=== PATIENT | female | born 2000 | race Hispanic/Latino ===

== ENCOUNTER 2021-09-19 18:51 | Observation (INO) | payer OTHER, SELFPAY ==
--- NOTE | 2021-09-19 18:49 | PC.NURSE ---
SPOKE WITH FRANDY IN OB. REPORT GIVEN. PT TO OB FOR EVALUATION BY WHEELCHAIR
[2021-09-19 19:16] VITALS: BP 120/69; PULSE 107
[2021-09-19 19:19] VITALS: BMI 31.1
[2021-09-19 19:20] VITALS: TEMP 36.7
[2021-09-19 19:31] VITALS: BP 114/57; PULSE 116
[2021-09-19 19:36] LABS: Add Urine Microscopic? YES; Appearance Urine Clear (Clear); Bilirubin Urine Negative (Negative); Blood Urine Negative (Negative); Color Urine Yellow (Yellow); Glucose Urine UA Negative (Negative); Ketones Urine 1+ mg/dL (Negative); Leukocyte Esterase Ur 1+ LEU/UL (NEGATIVE); Nitrate Urine Negative (Negative); Protein Urine Negative (Negative); RBC Urine 0-2 /hpf (0-2); Specific Grav Ur 1.011 (1.001-1.035); Squamous Epithelial Cell Urine Moderate /hpf (Few); Urobilinogen Urine Negative mg/dL (<2.0); WBC Urine 0-3 /hpf (0-3)
[2021-09-19 19:46] VITALS: BP 113/67; PULSE 102
[2021-09-19 20:01] VITALS: BP 105/61; PULSE 105
[2021-09-19 20:16] VITALS: BP 113/47; PULSE 103
[2021-09-19] MEDS: ONDANSETRON INJ 4 MG/2 ML VIAL IV PUSH (20:37)
[2021-09-19] MEDS: LACTATED RINGERS 1,000 ML 999 ML IV CONT (20:37)
--- NOTE | 2021-10-05 09:04 | P.PNOB_ITS ---
OB - Triage/Final Diagnosis Visit Information Comments/Additional reasons for admission: I have assessed the risk for this patient, Ginny Schneider, and determined that she would benefit from observation care. Evaluation Laboratory results: Laboratory Tests 09/19/21 19:13 Urine Color Yellow Urine Appearance Clear Urine pH 7.0 Ur Specific [place] 1.011 Urine Protein Negative Urine Glucose (UA) Negative Urine Ketones 1+ H Ur Blood (Man) Negative Urine Nitrate Negative Urine Bilirubin Negative Urine Urobilinogen Negative Ur Leukocyte Esterase 1+ H Urine RBC 0-2 Urine WBC 0-3 Ur Squamous Epith Cells Moderate H Final Diagnosis (1) Nausea & vomiting: Code(s): R11.2 - Nausea with vomiting, unspecified Status: Acute
== END 2021-09-19 22:05 | disposition home or self-care (01) ==
PROVIDERS: Advanced Practice Midwife; Admitting Provider Obstetrics & Gynecology; PCP Family Medicine; Visit Provider Obstetrics & Gynecology
DX: O21.2 Late vomiting of pregnancy (principal); Z3A.27 27 weeks gestation of pregnancy
CPT/HCPCS: 81001; 87086; 96374; G0378; G0379; J2405; J7120

== ENCOUNTER 2021-10-01 17:13 | Observation (INO) | payer OTHER, SELFPAY ==
[2021-10-01] VITALS (14 sets, daily range): BP systolic 75–114; BP diastolic 44–72; PULSE 77–109; O2SAT 95–99
[2021-10-01 18:01] LABS: Basophils Percent Auto 0.3 % (0.2-1.2); Eosinophils Absolute Auto 0.1 K/mm3 (0-0.3); Eosinophils Percent Auto 0.8 % (0-4.4); Hematocrit 33.4 % (37.0-47.0); Hemoglobin 11.1 g/dL (12.0-15.0); Immature Granulocyte Absolute 0.18 K/mm3 (0.00-0.031); Immature Granulocyte Percent A 1.6 % (0-0.5); Lymphocytes Absolute Auto 1.56 K/mm3 (0.9-3.2); Lymphocytes Percent Auto 13.4 % (18.3-44.2); Mean Corpuscular HGB Conc 33.2 g/dl (32-36); Mean Corpuscular Hemoglobin 30.1 pg (26-34); Mean Corpuscular Volume 90.5 fl (80-100); Mean Platelet Volume 10.4 fl (7.4-10.4); Monocytes Absolute Auto 0.6 K/mm3 (0.1-0.6); Monocytes Percent Auto 5.3 % (2.6-8.5); Neutrophils Absolute Auto 9.1 K/mm3 (1.3-6.7); Neutrophils Percent Auto 78.6 % (45.5-73.1); Platelet Count Result 257 k/mm3 (150-375); Red Blood Count 3.69 M/mm3 (4.2-5.4); Red Cell Distribution Width 12.7 % (11.5-14.5); White Blood Count 11.6 K/mm3 (4.5-10.0)
[2021-10-01 18:11] LABS: Alanine Aminotransferase 28 U/L (4-35); Albumin Level 3.7 g/dL (3.5-5.1); Alkaline Phosphatase 86 U/L (38-126); Anion Gap 7 mmol/L (8-16); Aspartate Amino Transferase 29 U/L (14-36); Bilirubin,Total < 0.1 mg/dL (0.2-1.3); Blood Urea Nitrogen 6 mg/dL (7-17); Calcium 8.8 mg/dL (8.4-10.2); Carbon Dioxide 20 mmol/L (22-30); Chloride 106 mmol/L (98-107); Estimated Glomerular Filt Rate > 60; Glucose 87 mg/dL (65-110); Potassium 3.9 mmol/L (3.4-5.0); Sodium 133 mmol/L (137-145)
[2021-10-01 18:23] LABS: Uric Acid 3.6 mg/dL (2.5-7.5)
[2021-10-01 18:38] LABS: Add Urine Microscopic? YES; Appearance Urine Clear (Clear); Bacteria Urine Trace /hpf; Bilirubin Urine Negative (Negative); Color Urine Yellow (Yellow); Glucose Urine UA Negative (Negative); Ketones Urine Negative (Negative); Leukocyte Esterase Ur 1+ LEU/UL (Negative); Nitrate Urine Negative (Negative); Protein Urine Negative (Negative); RBC Urine 0-2 /hpf (0-2); Squamous Epithelial Cell Urine Moderate /hpf (Few); Urobilinogen Urine Negative mg/dL (<2.0)
[2021-10-01 18:39] LABS: Blood Urine Negative (Negative)
[2021-10-01] MEDS: CYCLOBENZAPRINE HCL 10 MG TABLET PO (19:11)
--- NOTE | 2021-10-26 22:21 | PM.OBTRLD ---
OB - Triage/Final Diagnosis Visit Information Comments/Additional reasons for admission: I have assessed the risk for this patient, Ginny Schneider, and determined that she would benefit from observation care. Evaluation Laboratory results: Laboratory Tests 10/01/21 10/01/21 10/01/21 17:52 17:52 17:52 WBC 11.6 H RBC 3.69 L Hgb 11.1 L Hct 33.4 L MCV 90.5 MCH 30.1 MCHC 33.2 RDW 12.7 Plt Count 257 MPV 10.4 Immature Gran % (Auto) 1.6 H Neut % (Auto) 78.6 H Lymph % (Auto) 13.4 L [place] % (Auto) 5.3 Eos % (Auto) 0.8 Baso % (Auto) 0.3 Lymph # (Auto) 1.56 [place] # (Auto) 0.6 Eos # (Auto) 0.1 Baso # (Auto) 0.0 Abs Immat Gran (auto) 0.18 H Absolute Neuts (auto) 9.1 H Absolute Nucleated RBC 0.0 Nucleated RBC % 0.0 Sodium 133 L Potassium 3.9 Chloride 106 Carbon Dioxide 20 L Anion Gap 7 L BUN 6 L Creatinine 0.40 L Estim Creat Clear Calc Not Reportable Estimated GFR > 60 Glucose 87 Uric Acid Calcium 8.8 Total Bilirubin < 0.1 L AST 29 ALT 28 Alkaline Phosphatase 86 Total Protein 7.0 Albumin 3.7 Urine Color Yellow Urine Appearance Clear Urine pH 6.0 Ur Specific [place] 1.010 Urine Protein Negative Urine Glucose (UA) Negative Urine Ketones Negative Ur Blood (Man) Negative Urine Nitrate Negative Urine Bilirubin Negative Urine Urobilinogen Negative Leukocyte Esterase Rfl 1+ H Urine RBC 0-2 Urine WBC 7-9 H Ur Squamous Epith Cells Moderate H Urine Bacteria Trace 10/01/21 17:52 WBC RBC Hgb Hct MCV MCH MCHC RDW Plt Count MPV Immature Gran % (Auto) Neut % (Auto) Lymph % (Auto) [place] % (Auto) Eos % (Auto) Baso % (Auto) Lymph # (Auto) [place] # (Auto) Eos # (Auto) Baso # (Auto) Abs Immat Gran (auto) Absolute Neuts (auto) Absolute Nucleated RBC Nucleated RBC % Sodium Potassium Chloride Carbon Dioxide Anion Gap BUN Creatinine Estim Creat Clear Calc Estimated GFR Glucose Uric Acid 3.6 Calcium Total Bilirubin AST ALT Alkaline Phosphatase Total Protein Albumin Urine Color Urine Appearance Urine pH Ur Specific [place] Urine Protein Urine Glucose (UA) Urine Ketones Ur Blood (Man) Urine Nitrate Urine Bilirubin Urine Urobilinogen Leukocyte Esterase Rfl Urine RBC Urine WBC Ur Squamous Epith Cells Urine Bacteria Final Diagnosis (1) Abdominal pain: Code(s): R10.9 - Unspecified abdominal pain Status: Acute
== END 2021-10-01 20:05 | disposition home or self-care (01) ==
PROVIDERS: Admitting Provider Obstetrics & Gynecology; PCP Family Medicine; Visit Provider Obstetrics & Gynecology
DX: O26.899 Other specified pregnancy related conditions, unspecified trimester (principal); R10.9 Unspecified abdominal pain; Z3A.00 Weeks of gestation of pregnancy not specified
CPT/HCPCS: 36415; 80053; 81001; 84550; 85025; 87086; A9270; G0378; G0379

== ENCOUNTER 2021-10-02 13:46 | Observation (INO) | payer OTHER, SELFPAY ==
[2021-10-02] VITALS (9 sets, daily range): BP systolic 103–121; BP diastolic 62–76; PULSE 98–129; TEMP 37.2–38.2; BMI 30.4
--- NOTE | ~2021-10-02 | US_ITS ---
EXAMINATION: US renal BI DATE: 10/02/2021 15:16 INDICATION: Back pain TECHNIQUE: Multiple grayscale and Doppler ultrasound images of the kidneys were obtained. COMPARISON: None. FINDINGS: The right kidney measures 12.1 x 5.1 x 4.2 cm. The left kidney measures 10.9 x 4.5 x 4.7 cm . The kidneys demonstrate normal parenchymal echogenicity. There is no hydronephrosis. The bladder is normal. IMPRESSION: 1. Normal kidneys without hydronephrosis. Reviewed, dictated and finalized at location F. ASSISTANT
--- NOTE | 2021-10-02 14:10 | OBADM ---
This patient, Ginny Schneider, admitted to the OB room OB Post 116 for observation. Patient/family oriented to hospital policies and general routines including ID bracelet, bed and alarms, visiting hours, pain management, procedures, bathroom and other care routines, personal items, smoking policy, room service/diet, and visiting hours. Patient/Family are encouraged to report perceived risks to care and to ask questions if they do not understand what they are told or what they should do.
[2021-10-02] MEDS: ACETAMINOPHEN 325 MG TABLET 650 MG PO (14:34)
[2021-10-02] MEDS: CYCLOBENZAPRINE HCL 5 MG TABLET PO (14:53)
[2021-10-02 14:56] LABS: Basophils Percent Auto 0.2 % (0.2-1.2); Eosinophils Percent Auto 0.2 % (0-4.4); Hematocrit 34.5 % (37.0-47.0); Hemoglobin 11.3 g/dL (12.0-15.0); Immature Granulocyte Absolute 0.09 K/mm3 (0.00-0.031); Immature Granulocyte Percent A 1.1 % (0-0.5); Lymphocytes Absolute Auto 0.41 K/mm3 (0.9-3.2); Lymphocytes Percent Auto 4.9 % (18.3-44.2); Mean Corpuscular HGB Conc 32.8 g/dl (32-36); Mean Corpuscular Hemoglobin 29.7 pg (26-34); Mean Corpuscular Volume 90.6 fl (80-100); Mean Platelet Volume 10.4 fl (7.4-10.4); Monocytes Absolute Auto 0.5 K/mm3 (0.1-0.6); Monocytes Percent Auto 6.3 % (2.6-8.5); Neutrophils Absolute Auto 7.3 K/mm3 (1.3-6.7); Neutrophils Percent Auto 87.3 % (45.5-73.1); Platelet Count Result 203 k/mm3 (150-375); Red Blood Count 3.81 M/mm3 (4.2-5.4); Red Cell Distribution Width 12.7 % (11.5-14.5); White Blood Count 8.4 K/mm3 (4.5-10.0)
[2021-10-02 15:01] LABS: Appearance Urine Clear (Clear); Bilirubin Urine Negative (Negative); Blood Urine Negative (Negative); Color Urine Yellow (Yellow); Glucose Urine UA Negative (Negative); Ketones Urine Negative (Negative); Leukocyte Esterase Ur Trace LEU/UL (Negative); Nitrate Urine Negative (Negative); Protein Urine Negative (Negative); Urobilinogen Urine 0.2 mg/dL (<2.0)
[2021-10-02 15:04] LABS: Bacteria Urine Trace /hpf; Mucus Urine Rare /lpf; RBC Urine 0-2 /hpf (0-2); Squamous Epithelial Cell Urine Rare /hpf (Few); WBC Urine 0-3 /hpf
[2021-10-02 15:05] LABS: Add Urine Microscopic? YES
[2021-10-02 15:27] LABS: Alanine Aminotransferase 39 U/L (4-35); Albumin Level 3.7 g/dL (3.5-5.1); Alkaline Phosphatase 90 U/L (38-126); Amylase 99 U/L (30-110); Anion Gap 8 mmol/L (8-16); Aspartate Amino Transferase 46 U/L (14-36); Bilirubin,Total 0.1 mg/dL (0.2-1.3); Blood Urea Nitrogen 5 mg/dL (7-17); Calcium 8.6 mg/dL (8.4-10.2); Carbon Dioxide 21 mmol/L (22-30); Chloride 106 mmol/L (98-107); Estimated Glomerular Filt Rate > 60; Glucose 83 mg/dL (65-110); Lipase 57 U/L (23-300); Potassium 3.7 mmol/L (3.4-5.0); Sodium 135 mmol/L (137-145); Uric Acid 3.9 mg/dL (2.5-7.5)
--- NOTE | 2021-10-02 18:28 | PC.NURSE ---
pt states that her back pain is currently a 6/10 and she states that her muscles in her back feel tight . Josee offered- pt declined. pt states that she is willing to try heat on her back. K-pad set up for pt. pt states that her abdominal pain is better.
--- NOTE | 2021-10-02 19:51 | PC.NURSE ---
CALLED DR CACERES-UPDATE GIVEN ON PT. PT STATES THAT HER LOWER BACK PAIN IS 4/10 ON PAIN SCALE AND PT IS REQUESTING TO D/C HOME. ORDER RECEIVED TO D/C HOME WITH INSTRUCTIONS TO CALL OFFICE IN AM TO MAKE APPT LATER THIS WEEK.
--- NOTE | 2021-10-27 07:43 | PM.OBTRLD ---
OB - Triage/Final Diagnosis Visit Information Comments/Additional reasons for admission: I have assessed the risk for this patient, Ginny Schneider, and determined that she would benefit from observation care. Evaluation Laboratory results: Laboratory Tests 10/02/21 10/02/21 10/02/21 14:43 14:43 14:46 WBC 8.4 RBC 3.81 L Hgb 11.3 L Hct 34.5 L MCV 90.6 MCH 29.7 MCHC 32.8 RDW 12.7 Plt Count 203 MPV 10.4 Immature Gran % (Auto) 1.1 H Neut % (Auto) 87.3 H Lymph % (Auto) 4.9 L [place] % (Auto) 6.3 Eos % (Auto) 0.2 Baso % (Auto) 0.2 Lymph # (Auto) 0.41 L [place] # (Auto) 0.5 Eos # (Auto) 0.0 Baso # (Auto) 0.0 Abs Immat Gran (auto) 0.09 H Absolute Neuts (auto) 7.3 H Absolute Nucleated RBC 0.0 Nucleated RBC % 0.0 Sodium 135 L Potassium 3.7 Chloride 106 Carbon Dioxide 21 L Anion Gap 8 BUN 5 L Creatinine 0.50 L Estim Creat Clear Calc Not Reportable Estimated GFR > 60 Glucose 83 Uric Acid 3.9 Calcium 8.6 Total Bilirubin 0.1 L AST 46 H ALT 39 H Alkaline Phosphatase 90 Total Protein 7.0 Albumin 3.7 Amylase 99 Lipase 57 Urine Color Yellow Urine Appearance Clear Urine pH 6.0 Ur Specific [place] 1.010 Urine Protein Negative Urine Glucose (UA) Negative Urine Ketones Negative Ur Blood (Man) Negative Urine Nitrate Negative Urine Bilirubin Negative Urine Urobilinogen 0.2 Leukocyte Esterase Rfl Trace H Urine RBC 0-2 Urine WBC 0-3 Ur Squamous Epith Cells Rare Urine Bacteria Trace Urine Mucus Rare Final Diagnosis (1) False labor: Code(s): O47.9 - False labor, unspecified Status: Acute
== END 2021-10-02 20:08 | disposition home or self-care (01) ==
PROVIDERS: Advanced Practice Midwife; Admitting Provider Obstetrics & Gynecology; PCP Family Medicine; Visit Provider Obstetrics & Gynecology
DX: O47.03 False labor before 37 completed weeks of gestation, third trimester (principal); Z3A.29 29 weeks gestation of pregnancy
CPT/HCPCS: 36415; 76775; 80053; 81001; 82150; 83690; 84550; 85025; A9270; G0378; G0379

== ENCOUNTER 2021-11-23 14:30 | Observation (INO) | payer OTHER, SELFPAY ==
[2021-11-23 14:45] VITALS: BMI 34.0
[2021-11-23 14:59] VITALS: BP 113/61; PULSE 101
[2021-11-23 16:25] VITALS: TEMP 36.7
--- NOTE | 2021-11-23 16:55 | OBADM ---
This patient, Ginny Schneider, admitted to the OB room Labor/Delivery/Recovery 105 for observation. Patient/family oriented to hospital policies and general routines including ID bracelet, bed and alarms, visiting hours, pain management, procedures, bathroom and other care routines, personal items, smoking policy, room service/diet, and visiting hours. Patient/Family are encouraged to report perceived risks to care and to ask questions if they do not understand what they are told or what they should do.
--- NOTE | 2021-12-07 19:16 | P.PNOB_ITS ---
OB - Triage/Final Diagnosis Visit Information Date of evaluation: 12/07/21 Reason for evaluation: threatened labor Comments/Additional reasons for admission: I have assessed the risk for this patient, Ginny Lauri Schneider, and determined that she would benefit from o bservation care.
== END 2021-11-23 16:50 | disposition home or self-care (01) ==
PROVIDERS: Admitting Provider Obstetrics & Gynecology; PCP Family Medicine; Visit Provider Obstetrics & Gynecology
DX: O47.9 False labor, unspecified (principal)
CPT/HCPCS: G0378; G0379

== ENCOUNTER 2021-11-24 20:00 | Observation (INO) | payer OTHER, SELFPAY ==
[2021-11-24] VITALS (7 sets, daily range): BP systolic 107–126; BP diastolic 60–85; PULSE 75–98; TEMP 36.8; BMI 34.0
[2021-11-24] MEDS: CYCLOBENZAPRINE HCL 10 MG TABLET PO (22:49)
[2021-11-24 23:41] LABS: Add Urine Microscopic? NO; Appearance Urine Clear (Clear); Bilirubin Urine Negative (Negative); Blood Urine Negative (Negative); Color Urine Straw (Yellow); Glucose Urine UA Negative (Negative); Ketones Urine Negative (Negative); Leukocyte Esterase Ur Negative LEU/UL (Negative); Nitrate Urine Negative (Negative); Protein Urine Negative (Negative); Urobilinogen Urine Negative mg/dL (<2.0)
[2021-11-24 23:42] LABS: Specific Grav Ur 1.004 (1.001-1.035)
--- NOTE | 2021-11-24 23:58 | OBADM ---
This patient, Ginny Schneider, admitted to the OB room OB Post 115 for observation. Patient/family oriented to hospital policies and general routines including ID bracelet, bed and alarms, visiting hours, pain management, procedures, bathroom and other care routines, personal items, smoking policy, room service/diet, and visiting hours. Patient/Family are encouraged to report perceived risks to care and to ask questions if they do not understand what they are told or what they should do.
--- NOTE | 2021-11-29 15:02 | PM.OBTRLD ---
OB - Triage/Final Diagnosis Visit Information Comments/Additional reasons for admission: I have assessed the risk for this patient, Ginny Schneider, and determined that she would benefit from observation care. Evaluation Laboratory results: Laboratory Tests 11/24/21 23:10 Urine Color Straw Urine Appearance Clear Urine pH 7.0 Ur Specific [place] 1.004 Urine Protein Negative Urine Glucose (UA) Negative Urine Ketones Negative Ur Blood (Man) Negative Urine Nitrate Negative Urine Bilirubin Negative Urine Urobilinogen Negative Leukocyte Esterase Rfl Negative Final Diagnosis (1) False labor: Code(s): O47.9 - False labor, unspecified Status: Acute
== END 2021-11-24 23:55 | disposition home or self-care (01) ==
PROVIDERS: Admitting Provider Obstetrics & Gynecology; PCP Family Medicine; Visit Provider Obstetrics & Gynecology
DX: O47.03 False labor before 37 completed weeks of gestation, third trimester (principal); Z3A.36 36 weeks gestation of pregnancy
CPT/HCPCS: 81003; 84112; A9270; G0378; G0379

== ENCOUNTER 2021-12-05 22:07 | Observation (INO) | payer OTHER, SELFPAY ==
[2021-12-06 00:40] VITALS: BMI 33.7
--- NOTE | 2021-12-06 00:40 | OBADM ---
This patient, Ginny Schneider, admitted to the OB room Labor/Delivery/Recovery 104 for observation. Patient/family oriented to hospital policies and general routines including ID bracelet, bed and alarms, visiting hours, pain management, procedures, bathroom and other care routines, personal items, smoking policy, room service/diet, and visiting hours. Patient/Family are encouraged to report perceived risks to care and to ask questions if they do not understand what they are told or what they should do.
--- NOTE | 2021-12-26 15:29 | PM.OBTRLD ---
OB - Triage/Final Diagnosis Visit Information Comments/Additional reasons for admission: I have assessed the risk for this patient, Ginny Schneider, and determined that she would benefit from observation care. Final Diagnosis (1) False labor: Code(s): O47.9 - False labor, unspecified Status: Acute
== END 2021-12-06 00:49 | disposition home or self-care (01) ==
PROVIDERS: Admitting Provider Obstetrics & Gynecology; PCP Family Medicine; Visit Provider Obstetrics & Gynecology
DX: O47.1 False labor at or after 37 completed weeks of gestation (principal); Z3A.38 38 weeks gestation of pregnancy
CPT/HCPCS: G0378; G0379

== ENCOUNTER 2021-12-14 16:43 | Inpatient (IN) | payer OTHER, SELFPAY ==
[2021-12-14] VITALS (20 sets, daily range): BP systolic 108–141; BP diastolic 52–91; PULSE 67–97; BMI 35.5
--- NOTE | 2021-12-14 16:43 | LDADM ---
This patient, Ginny Schneider, was admitted to Labor/Delivery/Recovery 109 on 12/14/21 at 16:43. Plans for labor, pain management and were discussed with patient. Patient/family oriented to hospital policies and general routines including ID bracelet, bed and alarms, visiting hours, pain management, procedures, bathroom and other care routines, personal items, smoking policy, room service/diet and guest tray routines, infant security routines, and visiting hours. Patient/Family are encouraged to report perceived risks to care and to ask questions if they do not understand what they are told or what they should do. See OBIX for further documentation.
--- OUTSIDE RECORDS SUMMARY | 2021-12-14 16:48 | XMS_ITS | Encounter Summary ---
:2000 Author Care Team Providers Name Role Phone Bobbi Loyd MD Primary Care Provider [phone] Reason for Visit OB visit [id number] Assessment and Plan Assessment Note Patient is ___weeks . Discu ssed plan. 1. Routine care ? Keppra 500 mg tablet Discussion Note: None recorded.Patient educational handouts: No information available. Plan of Care Reminders Provider Appointments None ? ? recorded. Lab None ? ? recorded. Referral None ? ? recorded. Procedures None ? ? recorded. Surgeries None ? ? recorded. Imaging None ? ? recorded. Medications Name Start Date ? ? levetiracetam 500 mg tablet ? Take 1 tablet twice a day by oral route. ? Medications Administered None recorded. Vitals Height Weight BMI Blood Pressure 5 ft 3 in 182 lbs 32.2 kg/m2 122/74 mm[Hg] Results Lab Results None recorded. Allergies Code Code System Name Reaction Severity Onset NKDA ? ? ? Problems Name Status Onset Date Source ?
--- OUTSIDE RECORDS SUMMARY | 2021-12-14 16:48 | XMS_ITS | Encounter Summary ---
:2000 Author Care Team Providers Name Role Phone Bobbi Loyd MD Primary Care Provider [phone] Reason for Visit OB visit Assessment and Plan Assessment Note Patient is ___weeks . Discu ssed plan. 1. Routine care Discussion Note: None recorded.Patient educational handouts: No [...] BMI Blood Pressure 5 ft 3 in 201 lbs 35.6 kg/m2 125/76 mm[Hg] Results Lab Results None recorded. Allergies Code Code System Name Reaction Severity Onset NKDA ? ? ? Problems Name Status Onset Date Source ? Active 06/27/2021 ? Notes: Cyst of
--- OUTSIDE RECORDS SUMMARY | 2021-12-14 16:48 | XMS_ITS ---
:2000 Author Care Team Providers Name Role Phone DASHA VAUGHAN MD Primary Care Provider [phone] Allergies Code Code System Name Reaction Severity Status Onset NKDA ? Medications Name Status Start Date Stop Date ? ? fluconazole 150 mg tablet Completed ? 2020 levetiracetam 500 mg tablet Active ? Not available Active ? Not available Problems Name Status Onset Date Source ? Active 06/27/2021 ? 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 Procedures Date Name Performed by ? 06/15/2021 US, Obstetric, Nuchal Translucency [facility] [address] [place] [address] ([address]) 09/28/2021 US, Obstetric, Follow-up [place] [address] [place] [address] ([address]) 10/27/2021 US, Obstetric, Follow-up [place] [address] [place] [address] ([address]) 11/29/2021 , Obstetric, Follow-up [place] [address] [place] [address] ([address]) Results Lab Results
--- OUTSIDE RECORDS SUMMARY | 2021-12-14 16:48 | XMS_ITS | Encounter Summary ---
:2000 Author Care Team Providers Name Role Phone Bobbi Loyd MD Primary Care Provider [phone] Reason for Visit OB visit [id number] Assessment and Plan 1. Routine care Discussion Note: None recorded.Patient [...] BMI Blood Pressure 5 ft 3 in 193 lbs 34.2 kg/m2 103/76 mm[Hg] Results Lab Results None recorded. Allergies Code Code System Name Reaction Severity Onset NKDA ? ? ? Problems Name Status Onset Date Source ? Active 06/27/2021 ? 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 Procedures Date Name
--- OUTSIDE RECORDS SUMMARY | 2021-12-14 16:48 | XMS_ITS | Encounter Summary ---
:2000 Author Care Team Providers Name Role Phone Bobbi Loyd MD Primary Care Provider [phone] Reason for Visit OB visit Assessment and [...] BMI Blood Pressure 5 ft 3 in 186 lbs 32.9 kg/m2 109/69 mm[Hg] Results Lab Results None recorded. Allergies Code Code System Name Reaction Severity Onset NKDA ? ? ? Problems Name Status Onset Date Source ? Active 06/27/2021 ? Notes: Cyst of
--- OUTSIDE RECORDS SUMMARY | 2021-12-14 16:48 | XMS_ITS | Encounter Summary ---
:2000 Author Care Team Providers Name Role Phone Bobbi Loyd MD Primary Care Provider [phone] Reason for Visit OB visit OB [id number] EDC 12/18/2021 LMP 03/13/2021 Assessment and Plan Assessment Note Patient is _28__weeks . Dis cussed plan. 1. Routine care Discussion Note: None [...] BMI Blood Pressure 5 ft 3 in 171 lbs 30.3 kg/m2 120/76 mm[Hg] Results Lab Results None recorded. Allergies Code Code System Name Reaction Severity Onset NKDA ? ? ? Problems Name Status Onset Date Source ? Active 06/27/2021
--- OUTSIDE RECORDS SUMMARY | 2021-12-14 16:48 | XMS_ITS | Encounter Summary ---
:2000 Author Care Team Providers Name Role Phone Bobbi Loyd MD Primary Care Provider [phone] Reason for Visit None recorded. Assessment and Plan 1. High risk care ? US, obstetric, follow-up Discussion Note: None recorded.Patient educational handouts: No information available. Plan of Care Reminders Provider Appointments None ? ? recorded. Lab None ? ? recorded. Referral None ? ? recorded. Procedures None ? ? recorded. Surgeries None ? ? recorded. Imaging US, 09/28/2021 [place] [facility], Follow-up Medications Name Start Date ? ? levetiracetam 500 mg tablet ? Take 1 tablet twice a day by oral route. ? Medications Administered None recorded. Vitals None recorded. Results Lab Results None recorded. Allergies Code Code System Name Reaction Severity Onset NKDA ? ? ? Problems Name Status Onset Date Source ? Active 06/27/2021 ? 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 Procedures Date Name Performed by ?
--- OUTSIDE RECORDS SUMMARY | 2021-12-14 16:48 | XMS_ITS | Encounter Summary ---
:2000 Author Care Team Providers Name Role Phone Bobbi Loyd MD Primary Care Provider [phone] Reason for Visit None recorded. Assessment and Plan 1. Pre-existing maternal disease complicating ? US, obstetric, follow-up Discussion Note: None recorded.Patient educational handouts: No information available. Plan of Care Reminders Provider Appointments None ? ? recorded. Lab None ? ? recorded. Referral None ? ? recorded. Procedures None ? ? recorded. Surgeries None ? ? recorded. Imaging US, 10/27/2021 [place] [facility], Follow-up Medications Name Start Date ? [...]
--- OUTSIDE RECORDS SUMMARY | 2021-12-14 16:48 | XMS_ITS | Encounter Summary ---
:2000 Author Care Team Providers Name Role Phone Bobbi Loyd MD Primary Care Provider [phone] Reason for Visit None recorded. Assessment and Plan 1. High risk care ? US, obstetric, follow-up Discussion Note: None recorded.Patient educational handouts: No information available. Plan of Care Reminders Provider Appointments None ? ? recorded. Lab None ? ? recorded. Referral None ? ? recorded. Procedures None ? ? recorded. Surgeries None ? ? recorded. Imaging US, 11/29/2021 [place] [facility], Follow-up Medications Name Start Date ? [...]
--- OUTSIDE RECORDS SUMMARY | 2021-12-14 16:48 | XMS_ITS | Encounter Summary ---
:2000 Author Care Team Providers Name Role Phone Bobbi Loyd MD Primary Care Provider [phone] Reason for Visit OB visit OB [id number] EDC 12/18/2021 LMP 03/13/2021 Assessment and Plan Assessment Note Patient is _30__weeks . Dis cussed plan. 1. Routine care [...] BMI Blood Pressure 5 ft 3 in 176 lbs 31.2 kg/m2 108/70 mm[Hg] Results Lab Results None recorded. Allergies Code Code System Name Reaction Severity Onset NKDA ? ? ? Problems Name Status Onset Date Source ? Active 06/27/2021
[2021-12-14 17:16] LABS: Basophils Percent Auto 0.3 % (0.2-1.2); Eosinophils Absolute Auto 0.1 K/mm3 (0-0.3); Eosinophils Percent Auto 0.6 % (0-4.4); Hematocrit 34.7 % (37.0-47.0); Immature Granulocyte Absolute 0.05 K/mm3 (0.00-0.031); Immature Granulocyte Percent A 0.6 % (0-0.5); Lymphocytes Absolute Auto 1.37 K/mm3 (0.9-3.2); Lymphocytes Percent Auto 17.1 % (18.3-44.2); Mean Corpuscular HGB Conc 31.7 g/dl (32-36); Mean Corpuscular Hemoglobin 28.1 pg (26-34); Mean Corpuscular Volume 88.7 fl (80-100); Mean Platelet Volume 12.1 fl (7.4-10.4); Monocytes Absolute Auto 0.5 K/mm3 (0.1-0.6); Monocytes Percent Auto 6.4 % (2.6-8.5); Platelet Count Result 216 k/mm3 (150-375); Red Blood Count 3.91 M/mm3 (4.2-5.4); Red Cell Distribution Width 14.1 % (11.5-14.5)
[2021-12-14] MEDS: DINOPROSTONE 10 MG VAG INSERT VAGINAL ×2 (17:41→21:20)
[2021-12-14] MEDS: fentaNYL CITRATE INJ (*CRX) 100 MCG/2 ML VIAL 50 MCG IV PUSH (21:40)
[2021-12-14] MEDS: fentaNYL CITRATE INJ (*CRX) 100 MCG/2 ML VIAL IV PUSH (22:42)
[2021-12-15] VITALS (294 sets, daily range): BP systolic 91–147; BP diastolic 42–125; PULSE 45–249; TEMP 36.4–36.8; O2SAT 77–100
--- NOTE | 2021-12-15 00:42 | WPDANESEPP ---
Anes - Eval Pre Procedure Procedure: labor epidural Date/Time: 12/15/21 00:42 Surgeon: rocio Pre Op Diagnosis: IOL Patient Data Age: 20 Gender: F Height: 1.6 m Weight: 91 kg Last Vital Signs Pulse 160 H 12/15/21 00:40 BP 181/162 H 12/15/21 00:40 Allergies Allergy/AdvReac Type Severity Reaction Status Date / Time No Known Allergies Allergy Verified 11/30/21 13:55 Home Medications Medication Instructions Recorded Confirmed Type PNV cmb#95-ferrous fumarate-FA 1 tablet PO DAILY 10/02/21 12/14/21 History [] levetiracetam [Keppra] 500 mg PO DAILY 10/02/21 12/14/21 History Laboratory Tests 12/14/21 12/14/21 12/14/21 17:10 17:11 17:11 WBC 8.0 K/mm3 K/mm3 (4.5-10.0) RBC 3.91 M/mm3 L M/mm3 (4.2-5.4) Hgb 11.0 g/dL L g/dL (12.0-15.0) Hct 34.7 % L % (37.0-47.0) MCV 88.7 fl fl (80-100) MCH 28.1 pg pg (26-34) MCHC 31.7 g/dl L g/dl (32-36) RDW 14.1 % % (11.5-14.5) Plt Count 216 k/mm3 k/mm3 (150-375) MPV 12.1 fl H fl (7.4-10.4) Immature Gran % (Auto) 0.6 % H % (0-0.5) Neut % (Auto) 75.0 % H % (45.5-73.1) Lymph % (Auto) 17.1 % L % (18.3-44.2) [place] % (Auto) 6.4 % % (2.6-8.5) Eos % (Auto) 0.6 % % (0-4.4) Baso % (Auto) 0.3 % % (0.2-1.2) Lymph # (Auto) 1.37 K/mm3 K/mm3 (0.9-3.2) [place] # (Auto) 0.5 K/mm3 K/mm3 (0.1-0.6) Eos # (Auto) 0.1 K/mm3 K/mm3 (0-0.3) Baso # (Auto) 0.0 K/mm3 K/mm3 (0.0-0.1) Abs Immat Gran (auto) 0.05 K/mm3 H K/mm3 (0.00-0.031) Absolute Neuts (auto) 6.0 K/mm3 K/mm3 (1.3-6.7) Absolute Nucleated RBC 0.0 K/mm3 K/mm3 (0.0-0.012) Nucleated RBC % 0.0 % % (0.0-0.2) RPR Pending Blood Type O Positive Antibody Screen Negative Patient hx anesthesia problems: none Family hx anesthesia problems: none Results Review: All pre-operative results and documents have been reviewed as part of the pre-operative evaluation. [facility] Family History Family History (Updated 11/30/21 @ 13:56 by Diane Easley RN) Other No pertinent family history Social History Social History Smoking status: Never smoker Substance use: never Spiritual care concerns: No Exam Day of Procedure 12/15/21 00:42
[2021-12-15] MEDS: OXYTOCIN 30 UNITS/NS 500 ML 30 UNITS/500 ML BAG 125 UNITS IV CONT ×2 (06:23→23:19)
[2021-12-15] MEDS: LACTATED RINGERS 1,000 ML 125 ML IV CONT (06:24)
--- NOTE | 2021-12-15 07:11 | WPDHPUPDATE1 ---
History and Physical Update Update Date/Time: 12/15/21 07:11 This patient is a 20-year-old 1 at 39 weeks gestation presents for induction of labor. Cervidil was placed proximally 12 hours ago. Spontaneous rupture membranes occurred about 4 hours ago. She was 2 cm Dilated this morning. She has seizure disorder. The stable on Keppra. Pitocin was started. Reassuring heart tones. History and Physical has been reviewed, including an updated exam of the patient. There are NO changes in the patient's condition. Risks, benefits, and alternatives have been discussed and questions answered. Patient agrees to proceed with procedure.
[2021-12-15] MEDS: levETIRAcetam 500 MG TABLET PO (08:39)
[2021-12-15] MEDS: fentaNYL CITRATE INJ (*CRX) 100 MCG/2 ML VIAL 50 MCG IV PUSH (10:11)
[2021-12-15 12:06] LABS: Rapid Plasma Reagin Non-Reactive (NonReactive)
[2021-12-15] MEDS: ONDANSETRON INJ 4 MG/2 ML VIAL IV PUSH (17:23)
[2021-12-15] MEDS: AMPICILLIN 2 GM/NS 100 ML 2 GM/100 ML BAG IVPB (21:41)
--- NOTE | 2021-12-15 23:14 | PM.OBPRVD ---
OB - Delivery Note Procedure Delivery date: 12/15/21 Procedure: Induction method: AROM, Per Pitocin Protocol and Per Cervidil Protocol Delivery monitor: External FHT and Internal Uterine Route of delivery: Episiotomy description: Midline Delivery repair: vicryl Specimen: No Quantitative Blood Loss (ml): 400 Anesthesia type: Epidural Disposition: Floor [place] Baby Date of : 12/15/21 Time of : 22:56 Weeks of gestation at delivery: 39 gender: Female Weight (pounds): 6 Weight (ounces): 12 score one minute: 9 score five minutes: 9
[2021-12-16] VITALS (10 sets, daily range): BP systolic 87–132; BP diastolic 47–81; PULSE 68–110; RESP 16–18; TEMP 36.3–37.2; O2SAT 98–99
[2021-12-16] MEDS: ACETAMINOPHEN 325 MG TABLET 650 MG PO (00:03)
[2021-12-16] MEDS: BENZOCAINE 20% AER SPR (*SP) 56 GM CAN 1 SPRAY TOPICAL (01:04)
[2021-12-16] MEDS: WITCH HAZEL 40 PADS 1 PAD TOPICAL (01:04)
[2021-12-16] MEDS: IBUPROFEN 600 MG TABLET PO ×2 (05:03→16:21)
[2021-12-16 05:26] LABS: Hemoglobin 10.4 g/dL (12.0-15.0)
[2021-12-16] MEDS: LACTATED RINGERS 1,000 ML 125 ML IV CONT (06:22)
--- NOTE | 2021-12-16 07:25 | PM.OBPNVD ---
OB - PN: Subj Subjective Date/time seen: 12/16/21 07:25 Patient comments: no complaints baby status: doing well OB - PN: Obj Data Labs CBC & Chem 7: 12/16/21 05:13 Labs: Laboratory Results - last 24 hr 12/14/21 12/16/21 17:11 05:13 Hgb 10.4 L Hct 32.0 L RPR Non-reactive OB - PN A/P Plan day: 1 Plan: routine care Time Spent With Patient Time: Total time spent is greater than 50% in coordination of care (as documented) at patient's floor/unit and/or counseling patient: Review of Systems Review of Systems: All systems reviewed & are unremarkable except as noted in HPI and below Exam Const: General: cooperative, healthy appearing, comfortable and no acute distress
[2021-12-16] MEDS: levETIRAcetam 500 MG TABLET PO (08:16)
[2021-12-16] MEDS: DOCUSATE SODIUM 100 MG CAPSULE PO ×2 (08:16→16:21)
[2021-12-16] MEDS: HYDROcodone/acetaminophen (*CRX) 5-325 MG TABLET 1 TAB PO ×2 (08:16→16:21)
[2021-12-17] MEDS: DOCUSATE SODIUM 100 MG CAPSULE PO (07:28)
[2021-12-17] MEDS: BENZOCAINE 20% AER SPR (*SP) 56 GM CAN 1 SPRAY TOPICAL (07:28)
[2021-12-17] MEDS: WITCH HAZEL 40 PADS 1 PAD TOPICAL (07:28)
[2021-12-17] MEDS: levETIRAcetam 500 MG TABLET PO (07:29)
[2021-12-17] MEDS: IBUPROFEN 600 MG TABLET PO (07:29)
[2021-12-17 07:45] VITALS: BP 102/55; PULSE 75; RESP 18; TEMP 36.7
--- NOTE | 2021-12-17 13:25 | PM.OBPNVD ---
OB - PN: Subj Subjective Date/time seen: 12/17/21 13:25 Patient comments: no complaints, pain well controlled and tolerating diet OB - PN: Obj Data Labs CBC & Chem 7: 12/16/21 05:13 OB - PN A/P Plan day: 2 Plan: routine care and discharge home Time Spent With Patient Time: Total time spent is greater than 50% in coordination of care (as documented) at patient's floor/unit and/or counseling patient: Exam Const: General: comfortable and no acute distress Resp: Effort & Inspection: normal respiratory effort Auscultation: no rales, no rhonchi and no wheezes Cardio: Rate: regular rate Heart sounds: no click, no murmurs and no rubs GI: GI Palp: Yes Soft to palpation and No Tenderness to palpation present (GI) Auscultation: normal bowel sounds Extrem: General: normal to inspection, no pedal edema and no calf tenderness
--- NOTE | 2021-12-17 13:26 | P.DS_ITS ---
DS: Admitting Diagnosis Discharge Date 12/17/2021 Admitting Diagnosis term gestation DS: Discharge Diagnosis Discharge Diagnosis (1) Term delivered: Code(s): O80 - Encounter for full-term uncomplicated delivery Status: Acute OB - DS: Summary OB Procedures : None OB Procedures Intrapartum: Spontaneous Vag Delivery OB Procedures: : None Time Spent with Patient Time attestation: Total time spent providing and/or coordinating discharge services: Discharge Plan Discharge Discharging Clinician: Han Christopher Patient Disposition: Home, Self-Care Activity: may shower, as tolerated and pelvic rest Diet: regular Discharge Instructions: Education: Mom and Baby Guide Given to: Mother Follow-Up: Call your delivering provider's office for an appointment to be seen in: 4 Weeks Mom and baby should come to the [facility] for the follow-up appointment. Appointment Date/Time: Sunday, December 19, 2021 at 9:00 am What to expect at your follow-up visit: Blood Pressure Check Physical Assessment Call [phone] if you are unable to keep your appointment time. BREAST CARE: * Wear a snug supportive bra. Bottle Feeding: * May apply ice packs EPISIOTOMY/PERINEAL CARE: * Until bleeding stops, use your yousif bottle after urinating * Change your pad frequently throughout the day * You may take sitz baths several times a day (fill your bathtub with warm water and soak for 20 minutes.) Do NOT bathe in the water * No tub baths until seen by your physician - You may shower ACTIVITY: * Rest as much as possible. * Do not exercise or lift anything heavier than your baby (such as laundry or other children.) * Avoid stairs or driving as much as possible. * Do not put anything into the vagina. No douching, tampons, or sexual activity until seen by physician. NOTIFY PHYSICIAN IF YOU HAVE ANY QUESTIONS OR IF ANY OF THE FOLLOWING SYMPTOMS OCCUR: * If your episiotomy becomes red, swollen, or more painful than what you have experienced in the hospital. * If your vaginal bleeding becomes foul smelling. * If your vaginal bleeding becomes more heavy than a period or if your bleeding changes from pink to bright red. However, you may pass an occasional walnut- sized clot once or twice for the first week . * If you experience a sharp, shooting pain in you calves. * If you discover a hard, reddened area on your breast or if you experience flu- like symptoms. DIET: * Eat regular, well-balanced meals. * Drink plenty of fluids daily. If , drink to thirst. Patient Instructions: Antibiotic Form Stand Alone Forms: General Discharge Information Follow-up/Referrals: Han Christopher MD [Physician] - Discharge Medications: Continued levetiracetam [Keppra] 500 mg Tablet 500 mg PO DAILY RF: 0 PNV cmb#95-ferrous fumarate-FA [] 28 mg iron- 800 mcg Tablet 1 tablet PO DAILY RF: 0 Date of admission: 12/14/21 16:43 Primary Care Provider: Rach,Bobbi Kirkland Admitting Provider: Han Christopher Attending physician on admission: Han Christopher Condition: Stable
[2021-12-19 09:42] VITALS: BP 124/70; PULSE 66; RESP 18; TEMP 36.3; O2SAT 98
== END 2021-12-17 14:25 | disposition home or self-care (01) | DRG 560 ==
LOC: ANHLDR 16:46 → ANHOB2 12-16 03:01
PROVIDERS: Advanced Practice Midwife; Admitting Provider Obstetrics & Gynecology; PCP Family Medicine; Visit Provider Obstetrics & Gynecology
DX: O99.354 Diseases of the nervous system complicating childbirth (principal); Z37.0 Single live birth; Z3A.39 39 weeks gestation of pregnancy; G40.909 Epilepsy, unspecified, not intractable, without status epilepticus; O69.81X0 Labor and delivery complicated by cord around neck, without compression, not applicable or unspecified; O42.92 Full-term premature rupture of membranes, unspecified as to length of time between rupture and onset of labor
CPT/HCPCS: 36415; 85014; 85018; 85025; 86592; 86850; 86900; 86901; A9270; J0290; J2405; J2590; J2795; J3010; J7120

== ENCOUNTER 2022-07-07 13:24 | Emergency (ER) | payer OTHER, SELFPAY ==
--- NOTE | ~2022-07-07 | US_ITS ---
EXAMINATION: US OB <=14 wk fetus w TV DATE: 07/07/2022 15:52 INDICATION: Right adnexal pain during first trimester TECHNIQUE: Real-time pelvic transabdominal and transvaginal ultrasound was performed. COMPARISON: None. FINDINGS: The uterus measures 14.1 x 6.6 x 7.5 cm. There is an intrauterine gestational sac. A yolk sac is identified. heart motion is identified measuring 172 beats per minute (bpm) by M-mode Do ppler. The crown rump length measures 2.2 cm, which correlates with an estimated gestational ag e of 8 weeks and 6 day(s) (+/-) 6 day(s). The right ovary measures 3.2 x 1.3 x 2.3 cm. The left ovary measures 2.3 x 2.1 x 3.3 cm. There is nor mal vascular flow in the ovaries. There is no free fluid in the pelvis. IMPRESSION: 1. Live intrauterine with an estimated gestational age of 8 weeks and 6 day(s) (+/-) 6 day( s) and an estimated delivery date of 02/10/2023. Reviewed, dictated and finalized at location [facility]. EM CONSULTANT IMPRESSION: 1. Live intrauterine with an estimated gestational age of 8 weeks and 6 day(s) (+/-) 6 day(s) and an estimated delivery date of 02/10/2023.
[2022-07-07 13:28] VITALS: BP 111/65; PULSE 83; RESP 15; TEMP 36.2; O2SAT 100
[2022-07-07 15:33] LABS: Basophils Percent Auto 0.2 % (0.2-1.2); Eosinophils Percent Auto 0.5 % (0-4.4); Hematocrit 39.4 % (37.0-47.0); Hemoglobin 12.7 g/dL (12.0-15.0); Immature Granulocyte Absolute 0.02 K/mm3 (0.00-0.031); Immature Granulocyte Percent A 0.2 % (0-0.5); Lymphocytes Absolute Auto 1.97 K/mm3 (0.9-3.2); Lymphocytes Percent Auto 23.4 % (18.3-44.2); Mean Corpuscular HGB Conc 32.2 g/dl (32-36); Mean Corpuscular Hemoglobin 26.9 pg (26-34); Mean Corpuscular Volume 83.5 fl (80-100); Mean Platelet Volume 10.9 fl (7.4-10.4); Monocytes Absolute Auto 0.4 K/mm3 (0.1-0.6); Monocytes Percent Auto 4.4 % (2.6-8.5); Neutrophils Percent Auto 71.3 % (45.5-73.1); Platelet Count Result 321 k/mm3 (150-375); Red Blood Count 4.72 M/mm3 (4.2-5.4); Red Cell Distribution Width 14.9 % (11.5-14.5); White Blood Count 8.4 K/mm3 (4.5-10.0)
[2022-07-07 15:46] LABS: Anion Gap 12 mmol/L (8-16); Blood Urea Nitrogen 6 mg/dL (7-17); Calcium 9.1 mg/dL (8.4-10.2); Carbon Dioxide 23 mmol/L (22-30); Chloride 103 mmol/L (98-107); Estimated CRCL calculation 148 ml/min; Estimated Glomerular Filt Rate > 60; Glucose 95 mg/dL (65-110); Potassium 4.2 mmol/L (3.4-5.0); Sodium 138 mmol/L (137-145)
[2022-07-07] MEDS: ACETAMINOPHEN 325 MG TABLET 650 MG PO (16:03)
[2022-07-07 16:09] LABS: Appearance Urine Clear (Clear); Bilirubin Urine Negative (Negative); Blood Urine Negative (Negative); Color Urine Yellow (Yellow); Glucose Urine UA Negative (Negative); Ketones Urine Negative (Negative); Leukocyte Esterase Ur Negative LEU/UL (Negative); Nitrate Urine Negative (Negative); Protein Urine Negative (Negative); Urobilinogen Urine 0.2 mg/dL (<2.0)
[2022-07-07 16:13] LABS: Add Urine Microscopic? NO
--- NOTE | 2022-07-07 16:48 | ED.GENADULT ---
HPI - General Adult General Chief complaint: SURGICAL CONSULTANT Stated complaint: back pain Time Seen by Provider: 07/07/22 14:19 History of Present Illness HPI narrative: Patient is a 21-year-old female who presents ER with right-sided low back pain. Ongoing for 2 days. Developed some right pelvic pain today and thought she be evaluated. She reports she is and about 7 weeks gestation. G2, P1. She has not been seen by her OB yet which is Dr. Catherine. No vaginal bleeding or vaginal discharge. No urinary frequency urgency or dysuria. Denies any trauma or injury to the back. Related Data Home Medications Medication Instructions Recorded Confirmed levetiracetam 500 mg tablet 500 mg PO DAILY 10/02/21 12/14/21 (Keppra) vit no.95-ferrous 1 tablet PO DAILY 10/02/21 12/14/21 fumarate 28 mg-folic acid 800 mcg tablet () Allergies Allergy/AdvReac Type Severity Reaction Status Date / Time No Known Allergies Allergy Verified 11/30/21 13:55 Review of Systems Review of Systems: All systems reviewed & are unremarkable except as noted in HPI and below Constitutional: Constitutional: Denies chills, Denies fatigue and Denies fever(s) ENT: Denies nasal congestion and Denies sore throat Cardiovascular: Cardiovascular: Denies chest pain and Denies rapid heart rate Respiratory: Respiratory: Denies cough, Denies dyspnea and Denies wheezing Gastrointestinal: Gastrointestinal: Reports abdominal pain, Denies diarrhea and Denies nausea Genitourinary: Genitourinary: Denies abnormal vaginal bleeding, Denies nocturia, Reports pelvic pain and Denies vaginal discharge Musculoskeletal: Musculoskeletal: Reports back pain, Denies arthralgias and Denies joint swelling Neurologic: Denies focal weakness and Denies numbness PMFSH Past Medical History Medical History (Updated 07/07/22 @ 21:49 by Brian Shaffer MD) History of pituitary tumor Surgical History Surgical History (Updated 07/07/22 @ 21:49 by Brian Shaffer MD) No pertinent past surgical history Family History Family History (Updated 11/30/21 @ 13:56 by Diane Easley RN) Other No pertinent family history Social History Social History Smoking status: Never smoker Substance use: never Spiritual care concerns: No Exam Narrative: GENERAL: Well-appearing, well-nourished, and in no acute distress. HEAD: Normocephalic, atraumatic. CHEST: Clear to auscultation. No respiratory distress. HEART: Regular rate and rhythm. Normal peripheral pulses. ABDOMEN: Soft, mildly tender in the right lower quadrant/adnexal region without guarding, nondistended, normal active bowel sounds. Back: No reproducible midline or paraspinal muscular tenderness in the T/L-spine. EXTREMITIES: Normal range of motion. No edema. SKIN: Warm, dry, no rash. NEURO: Alert and oriented x3. PSYCH: Normal mood and affect. Course Course Emergency Course: Tylenol for pain. Unremarkable ultrasound. Recommend follow-up with her ethnology teacher. Vital Signs Vital signs: Vital Signs Temperature 97.2 F L 07/07/22 13:28 Pulse Rate 83 07/07/22 13:28 Respiratory Rate 15 07/07/22 13:28 Blood Pressure 111/65 07/07/22 13:28 Pulse Oximetry 100 07/07/22 13:28 Oxygen Delivery Room Air 07/07/22 13:28 Temperature 97.2 F L 07/07/22 13:28 Pulse Rate 80 07/07/22 17:16 Respiratory Rate 16 07/07/22 17:16 Blood Pressure 110/60 07/07/22 17:16 Pulse Oximetry 100 07/07/22 17:16 Oxygen Delivery Room Air 07/07/22 13:28 Medical Decision Making Vital Signs Vital Signs: Vital Signs Temperature 97.2 F L 07/07/22 13:28 Pulse Rate 83 07/07/22 13:28 Respiratory Rate 15 07/07/22 13:28 Blood Pressure 111/65 07/07/22 13:28 Pulse Oximetry 100 07/07/22 13:28 Oxygen Delivery Room Air 07/07/22 13:28 Temperature 97.2 F L 07/07/22 13:28 Pulse Rate 80 07/07/22 17:16 Respiratory Rate 16 07/07/22 17:16 Blood Pressu
[2022-07-07 17:16] VITALS: BP 110/60; PULSE 80; RESP 16; O2SAT 100
== END 2022-07-07 17:32 | disposition home or self-care (01) ==
PROVIDERS: Emergency Provider Emergency Medicine; PCP Family Medicine
DX: O26.891 Other specified pregnancy related conditions, first trimester (principal); M54.50 Low back pain, unspecified; R10.9 Unspecified abdominal pain; Z3A.01 Less than 8 weeks gestation of pregnancy
CPT/HCPCS: 36415; 76801; 76817; 80048; 81003; 84702; 85025; 86850; 86900; 86901; 99284; A9270

== ENCOUNTER 2022-11-08 15:43 | Outpatient (CLI) | payer OTHER, SELFPAY ==
--- NOTE | ~2022-11-08 | MR_ITS ---
MRI of the brain Clinical History: Headache, history pituitary tumor Technique: Axial and sagittal T1-weighted images were acquired. These were followed by axial T2-weigh mustapha, diffusion weighted, gradient, and FLAIR images. Thin cut coronal and sagittal T1-weighted images were acquired through the sella turcica. Findings: There is no abnormal signal to brain parenchyma. No acute infarct, intracranial hemorrhage, or mass lesion identified. Ventricles and subarachnoid spaces are unremarkable. Orbits are unremarkable. There is mild left fron dwaine sinus disease. Remaining paranasal sinuses and mastoid air cells are clear. Major intracranial fl ow voids are intact. Sagittal midline structures are intact. No pituitary or sellar/suprasellar mass identified. IMPRESSION: No intracranial abnormality seen. No pituitary or sellar/suprasellar mass identified. Mild left frontal sinus disease. Reviewed, dictated and finalized at [facility]. IMPRESSION: No intracranial abnormality seen. No pituitary or sellar/suprasellar mass ident ified. Mild left frontal sinus disease.
== END 2022-11-08 15:44 | disposition home or self-care (01) ==
PROVIDERS: PCP Family Medicine; Visit Provider Obstetrics & Gynecology
DX: J32.1 Chronic frontal sinusitis (principal); Z87.898 Personal history of other specified conditions
CPT/HCPCS: 70551

== ENCOUNTER 2022-11-16 20:50 | Observation (INO) | payer OTHER, SELFPAY ==
--- NOTE | 2022-11-16 20:50 | OBADM ---
This patient, Ginny Schneider, admitted to the OB room OB Post 113 for observation. Patient/family oriented to hospital policies and general routines including ID bracelet, bed and alarms, visiting hours, pain management, procedures, bathroom and other care routines, personal items, smoking policy, room service/diet, and visiting hours. Patient/Family are encouraged to report perceived risks to care and to ask questions if they do not understand what they are told or what they should do.
[2022-11-16 21:15] VITALS: TEMP 36.8
[2022-11-16 21:41] VITALS: BP 116/61; PULSE 87
[2022-11-16 21:45] VITALS: BP 107/56; PULSE 78
[2022-11-16 22:06] LABS: Appearance Urine Clear (Clear); Bacteria Urine None Seen /hpf; Bilirubin Urine Negative (Negative); Blood Urine Negative (Negative); Color Urine Yellow (Yellow); Glucose Urine UA Negative (Negative); Ketones Urine Negative (Negative); Leukocyte Esterase Ur 2+ LEU/UL (NEGATIVE); Need Manual Microscopic Reviewed; Nitrate Urine Negative (Negative); Non Pathogenic Casts 0-2; Protein Urine Negative (Negative); RBC Urine 0-2 /hpf (0-2); Specific Grav Ur 1.016 (1.001-1.035); Squamous Epithelial Cell Urine None seen /hpf (Few); WBC Urine 0-5 /hpf (0-3)
[2022-11-16 22:07] LABS: Add Urine Microscopic? YES
--- NOTE | 2022-11-20 14:46 | P.PNOB_ITS ---
OB - Triage/Final Diagnosis Visit Information Reason for evaluation: threatened labor Comments/Additional reasons for admission: I have assessed the risk for this patient, Ginny Schneider, and determined that she would benefit from observation care. Evaluation Laboratory results: Laboratory Tests 11/16/22 21:42 Urine Color Yellow Urine Appearance Clear Urine pH 8.0 Ur Specific [place] 1.016 Urine Protein Negative Urine Glucose (UA) Negative Urine Ketones Negative Ur Blood (Man) Negative Urine Nitrate Negative Urine Bilirubin Negative Urine Urobilinogen 1.0 Ur Leukocyte Esterase 2+ H Add Ur Microanalysis Reviewed Urine RBC 0-2 Urine WBC 0-5 Ur Squamous Epith Cells None seen Urine Bacteria None seen Urine Casts 0-2
== END 2022-11-16 22:40 | disposition home or self-care (01) ==
PROVIDERS: Admitting Provider Obstetrics & Gynecology; PCP Family Medicine; Visit Provider Obstetrics & Gynecology
DX: O47.02 False labor before 37 completed weeks of gestation, second trimester (principal); O26.892 Other specified pregnancy related conditions, second trimester; R10.9 Unspecified abdominal pain; Z3A.27 27 weeks gestation of pregnancy
CPT/HCPCS: 81001; 87086; G0378; G0379

== ENCOUNTER 2023-02-05 05:00 | Inpatient (IN) | payer OTHER, SELFPAY ==
[2023-02-05] VITALS (147 sets, daily range): BP systolic 70–135; BP diastolic 14–102; PULSE 36–120; RESP 16–18; TEMP 36.1–36.9; O2SAT 84–100; BMI 31.4
--- NOTE | 2023-02-05 05:18 | LDADM ---
This patient, Ginny Schneider, was admitted to Labor/Delivery/Recovery 105 on 02/05/23 at 05:00. Plans for labor, pain management and were discussed with patient. Patient/family oriented to hospital policies and general routines including ID bracelet, bed and alarms, visiting hours, pain management, procedures, bathroom and other care routines, personal items, smoking policy, room service/diet and guest tray routines, infant security routines, and visiting hours. Patient/Family are encouraged to report perceived risks to care and to ask questions if they do not understand what they are told or what they should do. See OBIX for further documentation.
[2023-02-05 05:31] LABS: Basophils Percent Auto 0.3 % (0.2-1.2); Eosinophils Absolute Auto 0.1 K/mm3 (0-0.3); Eosinophils Percent Auto 0.8 % (0-4.4); Hematocrit 37.6 % (37.0-47.0); Hemoglobin 12.2 g/dL (12.0-15.0); Immature Granulocyte Absolute 0.03 K/mm3 (0.00-0.031); Immature Granulocyte Percent A 0.4 % (0-0.5); Lymphocytes Absolute Auto 1.87 K/mm3 (0.9-3.2); Lymphocytes Percent Auto 25.8 % (18.3-44.2); Mean Corpuscular HGB Conc 32.4 g/dl (32-36); Mean Corpuscular Hemoglobin 28.5 pg (26-34); Mean Corpuscular Volume 87.9 fl (80-100); Monocytes Absolute Auto 0.4 K/mm3 (0.1-0.6); Monocytes Percent Auto 5.2 % (2.6-8.5); Neutrophils Absolute Auto 4.9 K/mm3 (1.3-6.7); Neutrophils Percent Auto 67.5 % (45.5-73.1); Platelet Count Result 186 k/mm3 (150-375); Red Blood Count 4.28 M/mm3 (4.2-5.4); Red Cell Distribution Width 13.8 % (11.5-14.5); White Blood Count 7.3 K/mm3 (4.5-10.0)
[2023-02-05] MEDS: LACTATED RINGERS 1,000 ML 125 ML IV CONT ×2 (05:50→09:42)
[2023-02-05] MEDS: OXYTOCIN 30 UNITS/NS 500 ML 30 UNITS/500 ML BAG IV CONT (05:50)
[2023-02-05] MEDS: PHENYLEPHRINE 1,000 MCG/10 ML SYRINGE 100 MCG IV PUSH (10:25)
[2023-02-05 15:20] LABS: Rapid Plasma Reagin Non-Reactive (NonReactive)
--- NOTE | 2023-02-05 15:36 | PC.NURSE ---
[id number] - Introductions were made, then consulted with patient to assess needs related to . Mother led the conversation with her?plans to feed?her . Resources provided for inpatient and outpatient services with bonding tri-fold. Encouraged [id number] if is stable until the first feeding, protecting the milk supply if there is no latch. Information given on asking for assistance with . Mother voiced understanding of the information.
--- NOTE | 2023-02-05 15:36 | PM.IMHP ---
H&P: HPI History of Present Illness Date/Time: 02/05/23 15:36 Chief Complaint: Induction of labor Narrative: She is a at 39 weeks admitted for [facility]. PNC significant for seizure disorder. She is on Keppra. No seizures during . She is followed by Neurology. Labs reviewed. GBS neg. Review of Systems Review of Systems: All systems reviewed & are unremarkable except as noted in HPI and below Constitutional: Constitutional: Reports no additional constitutional complaints and Denies headache(s) Eyes: Eyes: Denies spots in vision ENT: Reports system reviewed and no additional complaints, except as documented and Denies headache(s) Cardiovascular: Cardiovascular: Denies chest pain and Denies dyspnea Respiratory: Respiratory: Denies dyspnea Gastrointestinal: Gastrointestinal: Reports no additional gastrointestinal complaints Genitourinary: Genitourinary: Reports amenorrhea Musculoskeletal: Musculoskeletal: Reports no additional musculoskeletal complaints Integumentary/Breasts: Skin/Breast: Denies breast mass and Denies rash Neurologic: Denies headache(s) Psychiatric: Psychiatric: Reports no additional psychiatric complaints [facility] Past Medical History 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 History of seizure disorder Surgical History Surgical History No pertinent past surgical history Family History Family History Other No pertinent family history Social History Social History Smoking status: Never smoker Alcohol intake: never Substance use: never Lack of Transportation: No Lack of Food: Sometimes True Current Housing: I Have Housing Concerned About Future Housing: No Difficulty Paying Gas/Electric Bills: No Difficulty Paying for Meds: No Currently Unemployed: No Education: High School Diploma/GED Difficulty w/ Childcare or Family Care: No Spiritual care concerns: No Meds Home Medications and Allergies Home Medications Medication Instructions Recorded Confirmed Type vit no.95-ferrous 1 tablet PO DAILY 10/02/21 02/21/23 History fumarate 28 mg-folic acid 800 mcg tablet () levetiracetam 500 mg tablet 500 mg PO DAILY #90 tabs 11/02/22 02/21/23 Rx (Keppra) cholecalciferol (vitamin D3) 10 10 mcg PO DAILY 02/05/23 02/05/23 History mcg (400 unit) capsule (Vitamin D3) Allergies Allergy/AdvReac Type Severity Reaction Status Date / Time No Known Allergies Allergy Verified 01/30/23 12:00 Vital Signs Vital Signs - 24 hr 02/05/23 05:15 02/05/23 05:16 02/05/23 05:30 Temperature Pulse Rate 77 83 96 Blood Pressure 107/82 110/80 112/85 Pulse Oximetry Oxygen Delivery 02/05/23 05:47 02/05/23 06:00 02/05/23 06:17 Temperature Pulse Rate 74 83 70 Blood Pressure 118/77 112/74 102/67 Pulse Oximetry Oxygen Delivery 02/05/23 06:30 02/05/23 06:45 02/05/23 07:00 Temperature Pulse Rate 74 65 66 Blood Pressure 97/52 L 88/59 L 92/58 L Pulse Oximetry Oxygen Delivery 02/05/23 07:15 02/05/23 07:30 02/05/23 07:45 Temperature Pulse Rate 68 63 57 L Blood Pressure 95/57 L 90/59 L 92/47 L Pulse Oximetry Oxygen Delivery 02/05/23 08:00 02/05/23 08:15 02/05/23 08:30 Temperature Pulse Rate 62 53 L 56 L Blood Pressure 91/55 L 88/48 L 97/64 L Pulse Oximetry Oxygen Delivery 02/05/23 08:45 02/05/23 09:00 02/05/23 09:15 Temperature 97 F L Pulse Rate 84 61 62 Blood Pressure 106/61 92/61 L 115/72 Pulse Oximetry Oxygen Delivery 02/05/23 09:30 02/05/23 09:40 02/05/23 09:45 Temperature Pulse Rate 56 L Blood Pressure 112/63 Pulse Oximetry 99 99 Oxygen Delivery 02/05/23 09:46 02/05/23 09:50 0
--- NOTE | 2023-02-05 15:40 | P.PCNOB_ITS ---
OB - Delivery Note Procedure Delivery date: 02/05/23 Events: Other (HISTORY OF SEIZURE DISORDER) Induction method: AROM and Per Pitocin Protocol Delivery monitor: External FHT and Internal Uterine Route of delivery: Laceration Description: Perineal - 1st Degree Delivery repair: vicryl (3.0 VICRYL) Specimen: Yes Quantitative Blood Loss (ml): 200 Anesthesia type: Epidural Disposition: Floor [place] Baby Date of : 02/05/23 Time of : 15:18 Weeks of gestation at delivery: 39 Infant gender: Female Cord Vessel Description: 3 Vessels score one minute: 9 score five minutes: 9 AMG Delivery Billing Delivery Delivery: Delivery Charge
[2023-02-05] MEDS: BENZOCAINE 20% AER SPR (*SP) 56 GM CAN 1 SPRAY TOPICAL (15:47)
[2023-02-05] MEDS: OXYTOCIN 30 UNITS/NS 500 ML 30 UNITS/500 ML BAG 125 UNITS IV CONT (15:48)
[2023-02-05] MEDS: WITCH HAZEL 40 PADS 1 PAD TOPICAL (15:49)
--- NOTE | 2023-02-05 17:35 | PC.NURSE ---
Patient transferred to post room #291 via wheelchair. Support person present. Oriented to unit, room, information board, rooming in, admission packet and security measures. Patient verbalizes understanding.
[2023-02-05] MEDS: levETIRAcetam 500 MG TABLET PO (18:25)
[2023-02-05] MEDS: ACETAMINOPHEN 325 MG TABLET 650 MG PO (19:50)
[2023-02-06 05:45] LABS: Hemoglobin 11.2 g/dL (12.0-15.0)
[2023-02-06 07:35] VITALS: BP 103/51; PULSE 66; RESP 16; TEMP 37.6; O2SAT 100
[2023-02-06] MEDS: IBUPROFEN 600 MG TABLET PO (07:51)
[2023-02-06] MEDS: MULTIVIT/MIN/PREN/FOL AC/IRON TABLET 1 TAB PO (07:51)
[2023-02-06] MEDS: DOCUSATE SODIUM 100 MG CAPSULE PO (07:52)
--- NOTE | 2023-02-06 08:53 | PM.OBPNVD ---
OB - PN: Subj Subjective Date/time seen: 02/06/23 08:53 Interval history: She states she feels fine no pain she is trying to breastfeed. Minimal lochia. She wants to go home today. Patient comments: pain well controlled, tolerating diet and other (Decreasing lochia.) OB - PN: Obj Data Labs 02/06/23 05:25 Labs: Laboratory Results - last 24 hr 02/05/23 02/06/23 05:25 05:25 Hgb 11.2 L Hct 35.0 L RPR Non-reactive OB - PN A/P Assessment and Plan (1) Vaginal delivery: Code(s): O80 - Encounter for full-term uncomplicated delivery Status: Acute Assessment and Plan: She is doing well. Request discharge today. Okay to discharge today if baby goes home. Discharge precautions discussed. Plan day: 1 Plan: routine care Comments: Patient doing well. Time Spent With Patient Time: Total time spent is greater than 50% in coordination of care (as documented) at patient's floor/unit and/or counseling patient: Exam Psych: Affect: normal affect Other: Abd: fundus firm below umbilicus, nontender Perineum: healing Ext: nontender
[2023-02-06 11:00] VITALS: BP 93/55; PULSE 75; RESP 20; TEMP 36.9; O2SAT 100
--- NOTE | 2023-02-06 11:42 | PC.NURSE ---
[id number] Consulted with patient to assess needs related to . Mother led conversation with her experience with feeding baby so far. Mother works well with her infant with encouragement. Mother was encouraged to practice [id number], reminded of how to protect her milk supply as she has decided to use combination feeding with bottled formula. Mother has just fed her and didn't deny pinchy or biting but states there was tugging and pulling feelings while as well. Mother will call for assistance with the next , if there is a painful latch, or not able to wake infant to breastfeed. [phone] Consulted mother after being requested. Reviewed working with infant, supporting breast with the sandwich hold and how to protect the nipples with an optimal deep latch, good positioning, and good hand washing. Encouraged understanding the benefits of skin to skin, responding to feeding cues, frequencies of feeding 8-12 times in 24 hours (approximately 2-3 hours), duration of feedings, milk production, intake/output feeding sheet and signs of adequate intake encouraging swallowing at the breast. Reviewed positioning and alignment, supporting breast, off-centered (asymmetrical latch) and leading with the chin with big, open, wide gape. latched and effectively suckled at the right breast using cross cradle positioning for about 5 minutes, then let go of the breast. Nipple care reviewed with optimal latch, good positioning and using clean hands when feeding her infant and touching her breast. Resources used to facilitate learning were used from the tool, mom and baby guide. was stimulated to attempt to breastfeed, attempts were made and was sleepy and reluctant. Mother voiced understanding of the education shared, to call for assistance if the infant does not latch or if there is discomfort with . Reported to the primary RN.
--- NOTE | 2023-02-06 12:38 | PC.NURSE ---
[id number] Mother is eating lunch. is swaddled in the bassinet. Mother states she pumped and syringe fed her infant colostrum and will attempt to breastfeed later. Mother voiced understanding of the education shared, to call for assistance if the infant does not latch or if there is discomfort with . Reported to the primary RN.
--- NOTE | 2023-02-06 13:48 | WPDANLDPN2 ---
Anes-Prog Note L&D Date/Time: 02/06/23 13:48 Neuro status: Neuro function grossly intact. Cardiovascular status: normal Respiratory status: normal Airway patency: baseline Mental status: baseline Post-Op hydration status: normal Vital Signs: Last Vital Signs Temp 98.4 F 02/06/23 11:00 Pulse 75 02/06/23 11:00 Resp 20 02/06/23 11:00 BP 93/55 L 02/06/23 11:00 Pulse Ox 100 02/06/23 11:00 O2 Del Method Room Air 02/06/23 07:52 Pain score (VAS): 0 I/O: Intake & Output 02/05/23 02/06/23 02/06/23 23:59 07:59 15:59 Intake Total 500 350 Output Total 300 Balance 200 350 Post-procedural complaints: none Patient feedback: Patient satisfied with anesthetic care.
[2023-02-06] MEDS: MEASLES,MUMPS,RUBELLA VACCINE 0.5 ML VIAL SUB-Q (16:55)
--- NOTE | 2023-02-23 09:32 | PM.OBDSVD ---
DS: Admitting Diagnosis Discharge Date 02/06/23 Admitting Diagnosis Induction of labor DS: Discharge Diagnosis Discharge Diagnosis Plan Delivery of intrauterine OB - DS: Summary Hospital Course Hospital Course: She was admitted for [facility]. She had an uncomplicated vaginal delivery. She and baby did well . She requested discharge to home on day 1. OB Procedures : Ultrasound OB Procedures Intrapartum: Spontaneous Vag Delivery OB Procedures: : None Peripartum Data Delivery Method: Natural Vaginal Laceration Description: Perineal - 1st Degree complications: none Status at Discharge Functional status at discharge: independent ambulation Time Spent with Patient Time attestation: Total time spent providing and/or coordinating discharge services: Exam Const: General: cooperative Orientation/consciousness: oriented to person, oriented to place and oriented to time HENMT: Face/Nose/Sinus: Normal external nose present Eyes: General: appearance normal, both eyes and all related structures Resp: Effort & Inspection: normal respiratory effort GI: Inspection: normal to inspection Skin: General skin exam: normal color Neuro: General: oriented to person, oriented to place and oriented to time Extrem: General: normal to inspection and no calf tenderness Psych: Appearance: grossly normal Mental Status: mental status grossly normal DS: Data Data Completed and Pending Completed studies during hospitalization: Pending at discharge 02/05/23 15:28 Surgical [PTH] Routine Discharge Plan Discharge Attending physician on discharge: Justus Catherine Consulting providers: Arielle James Discharging Clinician: Justus Catherine Anticipated Discharge Date/Time: 02/06/23 16:01 Patient Disposition: Home, Self-Care Activity: may shower and pelvic rest Diet: regular Discharge Instructions: Education: Mom and Baby Guide Given to: Mother Follow-Up: Call your delivering provider's office for an appointment to be seen in: 2 Weeks Mom and baby should come to the [facility] for the follow-up appointment. Appointment Date/Time: Sunday, February 07, 2023 at 10:00 am What to expect at your follow-up visit: Physical Assessment Call [phone] if you are unable to keep your appointment time. BREAST CARE: * Wear a snug supportive bra. * For engorgement discomfort: Breast Feeding: * Apply warm moist washcloths * Express milk as needed to relieve engorgement * Wear loose clothing Bottle Feeding: * May apply ice packs * For sore nipples: * Identify correct latch-on * Apply warm moist washcloths before and after nursing * Air dry nipples after nursing * May apply Lansinoh cream to nipples PERINEAL CARE: * Until bleeding stops, use your yousif bottle after urinating * Change your pad frequently throughout the day * You may take sitz baths several times a day (fill your bathtub with warm water and soak for 20 minutes.) Do NOT bathe in the water * No tub baths until seen by your physician - You may shower ACTIVITY: * Rest as much as possible. * Do not exercise or lift anything heavier than your baby (such as laundry or other children.) * Avoid stairs or driving as much as possible. * Do not put anything into the vagina. No douching, tampons, or sexual activity until seen by physician. NOTIFY PHYSICIAN IF YOU HAVE ANY QUESTIONS OR IF ANY OF THE FOLLOWING SYMPTOMS OCCUR: * If your episiotomy or incision becomes red, swollen, or more painful than what you have experienced in the hospital. * If your vaginal bleeding becomes foul smelling. * If your vaginal bleeding becomes more heavy than a period or if your bleeding changes from pink to bright red. However, you may pass an occasional walnut-sized clot once or twice for
== END 2023-02-06 18:50 | disposition home or self-care (01) | DRG 560 ==
LOC: ANHLDR 05:05 → ANHOB2 17:38
PROVIDERS: Admitting Provider Obstetrics & Gynecology; PCP Family Medicine; Visit Provider Obstetrics & Gynecology
DX: O99.354 Diseases of the nervous system complicating childbirth (principal); G40.909 Epilepsy, unspecified, not intractable, without status epilepticus; Z37.0 Single live birth; Z3A.39 39 weeks gestation of pregnancy; Z14.1 Cystic fibrosis carrier; O70.0 First degree perineal laceration during delivery
CPT/HCPCS: 36415; 85014; 85018; 85025; 86592; 86850; 86900; 86901; 88307; 90710; A9270; J2370; J2590; J2795; J7120

== ENCOUNTER 2023-04-24 19:47 | Emergency (ER) | payer OTHER, SELFPAY ==
--- NOTE | ~2023-04-24 | CT_ITS ---
EXAMINATION: CT abdomen pelvis w con DATE: 04/25/2023 02:56 INDICATION: Right lower quadrant abdominal pain. TECHNIQUE: Computed tomography (CT) of the abdomen and pelvis was performed with 100 mL Omnipaque 350 intravenous contrast. Automated exposure control and iterative reconstruction technique were employe d. The dose-length product was 508.43 mGy-cm. COMPARISON: None. FINDINGS: The visualized portions of the lung bases demonstrate mild atelectasis. No pleural effusion . The heart size is normal. No pericardial effusion. The liver, gallbladder, and spleen are normal. T here are low-attenuation lesions in the spleen measuring up to 8 mm, likely benign lesions such as gr anulomatous disease. The pancreas, adrenal glands, and kidneys are normal. There are no dilated loops of bowel. The appendix is normal. There is physiologic fluid in the pelvis. There are no pathologica lly enlarged lymph nodes. There is an umbilical hernia containing fat. There is mild thoracic and lum bar spondylosis. IMPRESSION: 1. Umbilical hernia containing fat. Reviewed, dictated and finalized at location A.
[2023-04-24 20:07] VITALS: BP 127/82; PULSE 77; RESP 18; TEMP 36.6; O2SAT 100
[2023-04-24 20:36] LABS: Basophils Percent Auto 0.3 % (0.2-1.2); Eosinophils Absolute Auto 0.2 K/mm3 (0-0.3); Eosinophils Percent Auto 1.4 % (0-4.4); Hematocrit 38.7 % (37.0-47.0); Hemoglobin 12.4 g/dL (12.0-15.0); Immature Granulocyte Absolute 0.01 K/mm3 (0.00-0.031); Immature Granulocyte Percent A 0.1 % (0-0.5); Lymphocytes Absolute Auto 1.86 K/mm3 (0.9-3.2); Mean Corpuscular Hemoglobin 28.6 pg (26-34); Mean Corpuscular Volume 89.4 fl (80-100); Mean Platelet Volume 10.9 fl (7.4-10.4); Monocytes Absolute Auto 0.7 K/mm3 (0.1-0.6); Monocytes Percent Auto 6.1 % (2.6-8.5); Neutrophils Absolute Auto 8.2 K/mm3 (1.3-6.7); Neutrophils Percent Auto 75.1 % (45.5-73.1); Platelet Count Result 261 k/mm3 (150-375); Red Blood Count 4.33 M/mm3 (4.2-5.4); Red Cell Distribution Width 12.8 % (11.5-14.5)
[2023-04-24 20:43] LABS: Bacteria Urine None Seen /hpf; Non Pathogenic Casts 0-2; RBC Urine >100 /hpf (0-2); Squamous Epithelial Cell Urine None seen /hpf (Few)
[2023-04-24 20:45] LABS: Appearance Urine Cloudy (Clear); Bilirubin Urine Negative (Negative); Blood Urine 3+ (Negative); Color Urine Light Red (Yellow); Glucose Urine UA Negative (Negative); Ketones Urine Negative (Negative); Leukocyte Esterase Ur 2+ LEU/UL (Negative); Nitrate Urine Negative (Negative); Protein Urine Trace mg/dL (Negative); Specific Grav Ur 1.015 (1.001-1.035); pH Urine 8.5 (5.0-9.0)
[2023-04-24 20:46] LABS: Alanine Aminotransferase 22 U/L (6-35); Albumin Level 4.3 g/dL (3.5-5.1); Alkaline Phosphatase 63 U/L (38-126); Anion Gap 7 mmol/L (8-16); Aspartate Amino Transferase 25 U/L (14-36); Bilirubin,Total 0.2 mg/dL (0.2-1.3); Blood Urea Nitrogen 13 mg/dL (7-17); Calcium 8.9 mg/dL (8.4-10.2); Carbon Dioxide 26 mmol/L (22-30); Chloride 106 mmol/L (98-107); Estimated CRCL calculation 90 ml/min; Estimated Glomerular Filt Rate > 60; Glucose 103 mg/dL (65-110); Lipase 54 U/L (23-300); Sodium 139 mmol/L (137-145)
[2023-04-24 20:55] LABS: Add Urine Microscopic? YES
[2023-04-25] VITALS (9 sets, daily range): BP systolic 88–144; BP diastolic 57–86; PULSE 48–86; RESP 15–18; TEMP 36.8; O2SAT 98–100
--- NOTE | 2023-04-25 01:24 | ED.ABDPAIN ---
HPI - Abdominal Pain General Chief Complaint: Abdominal Pain <SHASHA Still Last Filed: 04/25/23 20:01> Stated Complaint: abd pain <SHASHA Still Last Filed: 04/25/23 20:01> Time Seen by Provider: 04/25/23 01:12 <SHASHA Still Last Filed: 04/25/23 20:01> Source: patient <SHASHA Still Last Filed: 04/25/23 20:01> Mode of arrival: ambulatory <SHASHA Still Last Filed: 04/25/23 20:01> Limitations: no limitations <SHASHA Still Last Filed: 04/25/23 20:01> History of Present Illness HPI narrative: This is a 22-year-old female that presents to the emergency department for abdominal pain ongoing today. Associated with dysuria. Reports her pain is in the right lower quadrant and is sharp in nature. Also reports some diarrhea. Denies fevers, vomiting, or hematuria. <SHASHA Still Last Filed: 04/25/23 20:01> Related Data Home Medications: Home Medications Medication Instructions Recorded Confirmed vit no.95-ferrous 1 tablet PO DAILY 10/02/21 02/21/23 fumarate 28 mg-folic acid 800 mcg tablet () cholecalciferol (vitamin D3) 10 10 mcg PO DAILY 02/05/23 02/05/23 mcg (400 unit) capsule (Vitamin D3) <SHASHA Still Last Filed: 04/25/23 20:01> Allergies/Adverse Reactions: Allergies Allergy/AdvReac Type Severity Reaction Status Date / Time No Known Allergies Allergy Verified 04/25/23 00:47 <SHASHA Still Last Filed: 04/25/23 20:01> Review of Systems Review of Systems: CONSTITUTIONAL: Denies fever GASTROINTESTINAL: Reports abdominal pain, and diarrhea. Denies nausea or vomiting. GENITOURINARY: Reports dysuria. Denies hematuria. <SHASHA Still Last Filed: 04/25/23 20:01> All systems reviewed & are unremarkable except as noted in HPI and below <Katerin Gomez PA-C - Last Filed: 04/25/23 20:01> PMFSH Past Medical History Medical History: 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 History of seizure disorder Vaginal delivery x2 <Katerin Gomez PA-C - Last Filed: 04/25/23 20:01> Surgical History Surgical History: Surgical History No pertinent past surgical history <Katerin Gomez PA-C - Last Filed: 04/25/23 20:01> Family History Family History: Family History Other No pertinent family history <Katerin Gomez PA-C - Last Filed: 04/25/23 20:01> Social History Social History: Social History Smoking status: Never smoker Alcohol intake: never Substance use: never Lack of Transportation: No Lack of Food: Sometimes True Current Housing: I Have Housing Concerned About Future Housing: No Difficulty Paying Gas/Electric Bills: No Difficulty Paying for Meds: No Currently Unemployed: No Education: High School Diploma/GED Difficulty w/ Childcare or Family Care: No Spiritual care concerns: No <Katerin Gomez PA-C - Last Filed: 04/25/23 20:01> Exam Narrative: GENERAL: Well-appearing, well-nourished, and in no acute distress. HEAD: Normocephalic, atraumatic. EYES: EOMI. CHEST: Clear to auscultation. No respiratory distress. No wheezes rales or rhonchi HEART: Regular rate and rhythm. No murmur heard. Normal peripheral pulses. ABDOMEN: Soft, nondistended, normal active bowel sounds. Tender to palpation of the right lower quadrant, without guarding. No CVA tenderness EXTREMITIES: Normal range of motion. No edema. SKIN: Warm, dry, no rash. NEURO: No focal deficits. Alert and oriented x3. PSYCH: Normal mood and affect <Katerin Gomez PA-C - Last Filed: 04/25/23 20:01> Course Course Emergency Course: Patient was up
[2023-04-25] MEDS: SODIUM CHLORIDE 0.9% IV 1,000 ML 999 ML IV CONT (01:54)
[2023-04-25] MEDS: IBUPROFEN IV 400 MG in SODIUM CHLORIDE 0.9% IV 100 ML 200 MG IVPB (02:29)
--- NOTE | 2023-04-25 03:05 | PC.NURSE ---
Pt stated the ibuprofen was burning too bad and asked me to stop it.
== END 2023-04-25 08:10 | disposition home or self-care (01) ==
PROVIDERS: Emergency Medicine; Emergency Provider Student in an Organized Health Care Education/Training Program; PCP Family Medicine
DX: N39.0 Urinary tract infection, site not specified (principal); K42.9 Umbilical hernia without obstruction or gangrene; Z20.822 Contact with and (suspected) exposure to COVID-19
CPT/HCPCS: 36415; 74177; 80053; 81001; 81025; 83690; 85025; 87086; 87088; 96365; 96366; 96367; 99284; J0696; J1741; J7030; Q9967

== ENCOUNTER 2023-11-15 15:10 | Outpatient (CLI) | payer OTHER, SELFPAY ==
--- NOTE | ~2023-11-15 | US_ITS ---
EXAMINATION: US OB follow up DATE: 11/15/2023 16:15 INDICATION: Amenorrhea, unspecified TECHNIQUE: Real-time ultrasound of the pelvis was performed. The interpreting radiologist was not pre sent for the study. COMPARISON: None. FINDINGS: There is a single living fetus in breech presentation. The placenta is posterior and 3.1 cm from the internal cervical os. The measured cervical length is 3.4 cm. cardiac activity and fe dwaine movement are noted. heart rate is 150 beats per minute (bpm). The amniotic fluid index is s ubjectively normal. The following biometric data were obtained: Biparietal diameter (BPD): 2.7 cm; head circumference (HC): 10.5 cm; abdominal circumference (AC): 9. 1 cm; femur length (FL): 1.8 cm. These measurements are concordant. Estimated weight is 119 g +/- 17 g, which correlates with the 66th percentile when 05/09/2024 is used as estimated date of delivery. As single measurements, these parameters are each equal to the following estimated gestational ages w ith ranges of +/- 2 standard deviations: BPD: 14 weeks 6 days +/- 1 weeks 1 days. HC: 15 weeks 0 days +/- 1 weeks 1 days. AC: 15 weeks 2 days +/- 1 weeks 5 days. FL: 15 weeks 2 days +/- 1 weeks 3 days. estimated gestational age based solely on measurements from this exam is 15 weeks 0 days +/- 1 weeks 0 days. IMPRESSION: 1. Single living fetus in breech presentation. 2. Estimated weight is 119 g +/- 17 g, which correlates with the 66th percentile when 05/09/2024 is used as estimated date of delivery. Reviewed, dictated and finalized at location A. IMPRESSION: 1. Single living fetus in breech presentation. 2. Estimated weight is 119 g +/- 17 g, which correlates with the 66th per centile when 05/09/2024 is used as estimated date of delivery.
== END 2023-11-15 15:11 | disposition home or self-care (01) ==
LOC: ANHIMG 15:14
PROVIDERS: PCP Family Medicine; Visit Provider Obstetrics & Gynecology
DX: N91.2 Amenorrhea, unspecified (principal)
CPT/HCPCS: 76816

== ENCOUNTER 2024-03-11 10:07 | Outpatient (CLI) | payer OTHER, SELFPAY ==
[2024-03-11] VITALS (11 sets, daily range): BP systolic 95–105; BP diastolic 51–63; PULSE 71–92; BMI 27.3
[2024-03-11] MEDS: ACETAMINOPHEN 500 MG TABLET 1000 MG PO (10:34)
[2024-03-11 10:38] LABS: Appearance Urine Clear (Clear); Basophils Percent Auto 0.3 % (0.2-1.2); Bilirubin Urine Negative (Negative); Blood Urine Negative (Negative); Color Urine Yellow (Yellow); Eosinophils Percent Auto 0.5 % (0-4.4); Glucose Urine UA Negative (Negative); Hematocrit 34.2 % (37.0-47.0); Hemoglobin 11.1 g/dL (12.0-15.0); Immature Granulocyte Absolute 0.02 K/mm3 (0.00-0.031); Immature Granulocyte Percent A 0.3 % (0-0.5); Ketones Urine Negative (Negative); Leukocyte Esterase Ur Negative LEU/UL (Negative); Lymphocytes Absolute Auto 1.23 K/mm3 (0.9-3.2); Lymphocytes Percent Auto 16.6 % (18.3-44.2); Mean Corpuscular HGB Conc 32.5 g/dl (32-36); Mean Corpuscular Hemoglobin 29.2 pg (26-34); Mean Platelet Volume 10.8 fl (7.4-10.4); Monocytes Absolute Auto 0.3 K/mm3 (0.1-0.6); Monocytes Percent Auto 3.9 % (2.6-8.5); Neutrophils Absolute Auto 5.8 K/mm3 (1.3-6.7); Neutrophils Percent Auto 78.4 % (45.5-73.1); Nitrate Urine Negative (Negative); Platelet Count Result 211 k/mm3 (150-375); Protein Urine Negative (Negative); Red Cell Distribution Width 12.5 % (11.5-14.5); Specific Grav Ur 1.011 (1.001-1.035); Urobilinogen Urine 0.2 mg/dL (<2.0); White Blood Count 7.4 K/mm3 (4.5-10.0)
[2024-03-11 10:49] LABS: Add Urine Microscopic? NO
[2024-03-11 10:51] LABS: Alanine Aminotransferase 12 U/L (6-35); Albumin Level 3.5 g/dL (3.5-5.1); Alkaline Phosphatase 91 U/L (38-126); Anion Gap 9 mmol/L (4-12); Aspartate Amino Transferase 20 U/L (14-36); Bilirubin,Total 0.1 mg/dL (0.2-1.3); Blood Urea Nitrogen 3 mg/dL (7-17); Calcium 8.6 mg/dL (8.4-10.2); Carbon Dioxide 19 mmol/L (22-30); Chloride 106 mmol/L (98-107); Estimated CRCL calculation 165 ml/min; Estimated Glomerular Filt Rate > 60; Glucose 102 mg/dL (65-110); Potassium 3.7 mmol/L (3.4-5.0); Sodium 134 mmol/L (137-145); Uric Acid 4.4 mg/dL (2.5-7.5)
[2024-03-11 11:14] LABS: Creatinine Urine 73.9 mg/dL; Total Protein Urine Random 8 mg/dL; Ur Ttl Prot Creatinine Ratio 0.11 mg/mg (0-0.20)
[2024-03-11] MEDS: PSEUDOEPHEDRINE HCL 30 MG TABLET PO (11:26)
[2024-03-11] MEDS: ACETAMINOPHEN/BUTALBITAL/CAFFEINE 325-50-40 MG TABLET (FIORICET) 1 TAB PO (12:55)
[2024-03-11] MEDS: LACTATED RINGERS 1,000 ML 999 ML IV CONT (14:35)
[2024-03-11] MEDS: PROMETHAZINE HCL 25 MG/ML AMPUL 12.5 MG IV PUSH (14:35)
--- NOTE | 2024-03-11 14:44 | PC.NURSE ---
Patient admitted to L&D with complaints of a headache that she rates a 6-8 on the pain scale. Patient states the headache has been persistent for 2 days and has not improved. Notified Dr. Catherine of patient's arrival and complaint, verbal orders received via phone for PIH workup as well as 1000mg PO Tylenol. Patient states she normally consumes caffeine and has not had any in 2 days and has not eaten today. Patient given soda and snacks with Tylenol. PIH workup negative for preeclampsia but headache not improved. Verbal orders received from Dr. Catherine to try PO Pseudafed. RN noted patient to be sleeping when RN entered room. Patient states headache is the same after Pseudafed. Notified Dr. Catherine again and received verbal orders for PO Fiorecet. Upon reevaluation, patient states the headache still has not improved. Notified Dr. Catherine and received orders for a 1L IV fluid bolus and 12.5 mg IV Phenergan.
--- NOTE | 2024-03-11 15:36 | PC.NURSE ---
After receiving IV fluids, patient states she feels better and would like to go home. Dr. Catherine notified and verbal orders received for discharge.
== END 2024-03-11 15:53 ==
LOC: ANHOBOP 10:12 → ANHOBPP 10:12
PROVIDERS: PCP Family Medicine; Visit Provider Obstetrics & Gynecology
DX: O13.9 Gestational [pregnancy-induced] hypertension without significant proteinuria, unspecified trimester (principal); Z3A.00 Weeks of gestation of pregnancy not specified
CPT/HCPCS: 36415; 59025; 80053; 81003; 82570; 84156; 84550; 85025; 99199; A9270; J2550; J7120

== ENCOUNTER 2024-04-06 19:49 | Observation (INO) | payer OTHER, SELFPAY ==
[2024-04-06 20:16] VITALS: BP 104/51; PULSE 72
--- NOTE | 2024-04-06 20:16 | OBADM ---
This patient, Ginny Schneider, admitted to the OB room OB Post [facility] for observation. Patient/family oriented to hospital policies and general routines including ID bracelet, bed and alarms, visiting hours, pain management, procedures, bathroom and other care routines, personal items, smoking policy, room service/diet, and visiting hours. Patient/Family are encouraged to report perceived risks to care and to ask questions if they do not understand what they are told or what they should do.
[2024-04-06 20:30] VITALS: BP 101/64; PULSE 82
--- NOTE | 2024-04-06 20:35 | PC.NURSE ---
1949- Pt arrived to unit from home with chief complaint of tailbone pain rating 10/10. pt states that pain began @ approx 0600. Pt denies any falls or trauma to abdomen. pt denies seizure. Abdomen palpates soft and pt denies any LOF, vaginal bleeding, or contractions. Pt states that she feels movement. Pt given clicker and asked to leni when/ if the pain intensifies. 2028- MD called and made aware of pts arrival to unit with c/o of tailbone pain rating 10/10. MD made aware of FHT and lack of contractions. Orders received for pt to follow up with PCP, utilize donut and tylenol. discharge order also received.
[2024-04-06] MEDS: ACETAMINOPHEN 500 MG TABLET 1000 MG PO (20:44)
[2024-04-06 20:45] VITALS: BP 101/51; PULSE 80
--- NOTE | 2024-04-07 10:04 | PM.OBTRLD ---
OB - Triage/Final Diagnosis Visit Information Date of evaluation: 04/07/24 Reason for evaluation: threatened labor Comments/Additional reasons for admission: I have assessed the risk for this patient, Ginny Schneider, and determined that she would benefit from observation care. Evaluation Vital signs: Vital Signs - 24 hr 04/06/24 20:15 04/06/24 20:16 04/06/24 20:30 Pulse Rate 72 82 Blood Pressure 104/51 L 101/64 Oxygen Delivery Room Air 04/06/24 20:45 Pulse Rate 80 Blood Pressure 101/51 L Oxygen Delivery
== END 2024-04-06 20:56 | disposition home or self-care (01) ==
PROVIDERS: Admitting Provider Obstetrics & Gynecology; PCP Family Medicine; Visit Provider Student in an Organized Health Care Education/Training Program
DX: O47.9 False labor, unspecified (principal)
CPT/HCPCS: A9270; G0378; G0379

== ENCOUNTER 2024-04-29 13:06 | Outpatient (RCR) | payer OTHER, SELFPAY ==
[2024-04-17 13:50] VITALS: BP 102/67; PULSE 76
--- NOTE | ~2024-04-29 | US_ITS ---
LIMITED OBSTETRIC ULTRASOUND/BIOPHYSICAL PROFILE Ordering provider: Justus Catherine MD History: . BPP, TOBIN, decreased movement . Comparison: None. FINDINGS: MATERNAL CERVIX: Not visualized. cm which is normal (normal is equal to or greater than 3.0 cm). Single live fetus. PRESENTATION: Vertex. Longitudinal lie. PLACENTAL LOCATION: Fundal. No previa. HEART RATE: 141 bpm (normal is between 110 to 160 bpm). AMNIOTIC FLUID INDEX: 12.5 cm. 5th percentile is 7.3 cm and 95th percentile is 23.9 cm. Largest vert ical pocket is 5.1 cm. normal (TOBIN between 5-25 cm in from 20-35 weeks gestation is considered normal ). OTHER: Maternal ovaries not visualized. SCORE: breathing movements: 2 movements: 2 tone: 2 Amniotic fluid volume: 2 Total: 8 IMPRESSION: Normal biophysical profile. Reviewed, dictated and finalized at location A. IMPRESSION: Normal biophysical profile.
--- NOTE | ~2024-04-29 | US_ITS ---
EXAMINATION: US OB limited w BPP DATE: 04/17/2024 14:11 INDICATION: Decreased movements. TECHNIQUE: Real-time pelvic ultrasound was performed. The interpreting radiologist was not present fo r the study. COMPARISON: Ultrasound dated 11/15/2023. FINDINGS: There is a single living fetus in vertex presentation. The placenta is fundal. cardiac activit y and movement are demonstrated. heart rate is 129 beats per minute (bpm). TOBIN is lower n ormal measuring 8.2 cm. Biophysical profile performed by the technologist: breathing (30 sec sustained breathing in 30 minutes): 2 out of 2 movement (3 gross body movements in 30 minutes): 2 out of 2 tone (one episode of bboaige-cwhfydwji-zatwspf limb movement): 2 out of 2 Amniotic fluid pocket (2 cm): 2 out of 2 Total score: 8 out of 8 IMPRESSION: 1. Single living intrauterine in vertex presentation with heart rate of 129 bpm. 2. Normal TOBIN measures 8.2 cm. 3. Biophysical profile 8 out of 8. Reviewed, dictated and finalized at location B.
[2024-04-29 14:57] VITALS: BP 104/66; PULSE 85
== END 2024-06-23 09:58 | disposition home or self-care (01) ==
LOC: ANHOBOP 13:06
PROVIDERS: PCP Family Medicine; Visit Provider Obstetrics & Gynecology
DX: O36.8130 Decreased fetal movements, third trimester, not applicable or unspecified (principal); Z3A.36 36 weeks gestation of pregnancy; Z3A.38 38 weeks gestation of pregnancy
CPT/HCPCS: 59025; 76815; 76819

== ENCOUNTER 2024-05-06 05:57 | Inpatient (IN) | payer OTHER, SELFPAY ==
[2024-05-06] VITALS (174 sets, daily range): BP systolic 57–164; BP diastolic 28–134; PULSE 27–140; RESP 16–18; TEMP 36–37.2; O2SAT 67–100; BMI 28.9
[2024-05-06 06:34] LABS: Basophils Percent Auto 0.3 % (0.2-1.2); Eosinophils Absolute Auto 0.1 K/mm3 (0-0.3); Eosinophils Percent Auto 0.9 % (0-4.4); Hemoglobin 11.4 g/dL (12.0-15.0); Immature Granulocyte Absolute 0.03 K/mm3 (0.00-0.031); Immature Granulocyte Percent A 0.4 % (0-0.5); Lymphocytes Absolute Auto 1.77 K/mm3 (0.9-3.2); Lymphocytes Percent Auto 22.7 % (18.3-44.2); Mean Corpuscular HGB Conc 32.6 g/dl (32-36); Mean Corpuscular Hemoglobin 28.9 pg (26-34); Mean Corpuscular Volume 88.8 fl (80-100); Mean Platelet Volume 11.9 fl (7.4-10.4); Monocytes Absolute Auto 0.4 K/mm3 (0.1-0.6); Monocytes Percent Auto 5.1 % (2.6-8.5); Neutrophils Absolute Auto 5.5 K/mm3 (1.3-6.7); Neutrophils Percent Auto 70.6 % (45.5-73.1); Platelet Count Result 162 k/mm3 (150-375); Red Blood Count 3.94 M/mm3 (4.2-5.4); Red Cell Distribution Width 13.8 % (11.5-14.5); White Blood Count 7.8 K/mm3 (4.5-10.0)
--- NOTE | 2024-05-06 06:43 | LDADM ---
This patient, Ginny Schneider, was admitted to Labor/Delivery/Recovery 104 on 05/06/24 at 05:57. Plans for labor, pain management and were discussed with patient. Patient/family oriented to hospital policies and general routines including ID bracelet, bed and alarms, visiting hours, pain management, procedures, bathroom and other care routines, personal items, smoking policy, room service/diet and guest tray routines, infant security routines, and visiting hours. Patient/Family are encouraged to report perceived risks to care and to ask questions if they do not understand what they are told or what they should do. See OBIX for further documentation.
[2024-05-06] MEDS: LACTATED RINGERS 1,000 ML 125 ML IV CONT ×3 (07:21→13:38)
[2024-05-06] MEDS: OXYTOCIN 30 UNITS/NS 500 ML 30 UNITS/500 ML BAG IV CONT (07:21)
[2024-05-06 07:47] LABS: HIV 1/2 Ab P24 Ag Result Negative (Negative)
[2024-05-06 08:37] LABS: Rapid Plasma Reagin Non-Reactive (NonReactive)
[2024-05-06] MEDS: ePHEDrine sulfate INJ 50 MG/ML AMPUL (09:01)
[2024-05-06] MEDS: ONDANSETRON INJ 4 MG/2 ML VIAL IV PUSH (12:51)
--- NOTE | 2024-05-06 12:52 | WPDANESEPPF ---
Anes - Initial Pre Proc Eval Date/Time: 05/06/24 12:52 Surgeon: Justus Catherine MD Pre Op Diagnosis: IOL Patient Data Age: 23 Gender: F Height: 1.6 m Weight: 74 kg Last Vital Signs Temp 36.6 C 05/06/24 12:00 Pulse 72 05/06/24 12:31 BP 103/60 05/06/24 12:31 Pulse Ox 100 05/06/24 12:49 O2 Del Method Room Air 05/06/24 06:40 Allergies Allergy/AdvReac Type Severity Reaction Status Date / Time No Known Allergies Allergy Verified 04/29/24 12:48 Home Medications Medication Instructions Recorded Confirmed Type vit no.95-ferrous 1 tablet PO DAILY 10/02/21 04/22/24 History fumarate 28 mg-folic acid 800 mcg tablet () folic acid 1 mg tablet 1 mg PO DAILY #90 tabs 11/21/23 04/22/24 Rx levetiracetam 500 mg tablet 500 mg PO BID #180 tabs 11/21/23 04/22/24 Rx (Keppra) Laboratory Tests 05/06/24 05/06/24 06:08 06:18 WBC 7.8 K/mm3 (4.5-10.0) RBC 3.94 L M/mm3 (4.2-5.4) Hgb 11.4 L g/dL (12.0-15.0) Hct 35.0 L % (37.0-47.0) MCV 88.8 fl (80-100) MCH 28.9 pg (26-34) MCHC 32.6 g/dl (32-36) RDW 13.8 % (11.5-14.5) Plt Count 162 k/mm3 (150-375) MPV 11.9 H fl (7.4-10.4) Immature Gran % (Auto) 0.4 % (0-0.5) Neut % (Auto) 70.6 % (45.5-73.1) Lymph % (Auto) 22.7 % (18.3-44.2) Russell % (Auto) 5.1 % (2.6-8.5) Eos % (Auto) 0.9 % (0-4.4) Baso % (Auto) 0.3 % (0.2-1.2) Lymph # (Auto) 1.77 K/mm3 (0.9-3.2) Russell # (Auto) 0.4 K/mm3 (0.1-0.6) Eos # (Auto) 0.1 K/mm3 (0-0.3) Baso # (Auto) 0.0 K/mm3 (0.0-0.1) Abs Immat Gran (auto) 0.03 K/mm3 (0.00-0.031) Absolute Neuts (auto) 5.5 K/mm3 (1.3-6.7) Absolute Nucleated RBC 0.000 K/mm3 (0.0-0.012) Nucleated RBC % 0.0 % (0.0-0.2) RPR Non-reactive (NonReactive) HIV 1&2 Ab/P24 Ag 4thGn Negative (Negative) Blood Type O Positive Antibody Screen Negative Patient hx anesthesia problems: none Family hx anesthesia problems: none Results Review: All pre-operative results and documents have been reviewed as part of the pre-operative evaluation. [facility] Past Medical History 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 History of seizure disorder Pelvic pain Vaginal delivery x2 Surgical History Surgical History No pertinent past surgical history Family History Family History Other No pertinent family history Social History Social History Smoking status: Never smoker Alcohol intake: never Substance use: never Do You Feel Safe in your Home?: Yes Lack of Transportation: No Lack of Food: Never True Current Housing: I Have Housing Concerned About Future Housing: No Difficulty Paying Gas/Electric Bills: No Difficulty Paying for Meds: No Currently Unemployed: No Education: High School Diploma/GED Difficulty w/ Childcare or Family Care: No Spiritual care concerns: No Anes - Eval Final PreProcedure Day of Procedure 05/06/24 12:52 Patient weight: overweight Heart: regular rate and rhythm Lungs: clear to auscultation Neurological: alert and oriented ASA classification: III Emergent: no Anesthetic plan: proceed Anesthesia type and monitoring: regional epidural and standard monitoring Results Review: All pre-operative results and documents have been reviewed as part of the pre-operative evaluation. Informed Consent: The patient's anesthetic plan and its attendant risks and benefits were discussed with the patient/family/POA. Questions were solicited and answers provided to the satisfaction of the patient/family/
[2024-05-06] MEDS: DEXTROSE 5%/LACTATED RINGERS 1,000 ML 125 ML IV CONT (16:24)
--- NOTE | 2024-05-06 17:08 | PM.IMHP ---
H&P: HPI History of Present Illness Date/Time: 05/06/24 17:08 Chief Complaint: Induction of labor Narrative: 23 y/o at 39 4/7 weeks by LMP admitted for [facility]. PNC significant for h/o seizure d/o- she is on Keppra. She has not had seizures in several years. Last child delivered January 2023. 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 Labs reviewed. GBS neg. Review of Systems Review of Systems: All systems reviewed & are unremarkable except as noted in HPI and below Constitutional: Constitutional: Reports no additional constitutional complaints and Denies headache(s) Eyes: Eyes: Denies spots in vision ENT: Reports system reviewed and no additional complaints, except as documented and Denies headache(s) Cardiovascular: Cardiovascular: Denies chest pain and Denies dyspnea Respiratory: Respiratory: Denies dyspnea Gastrointestinal: Gastrointestinal: Reports no additional gastrointestinal complaints Genitourinary: Genitourinary: Reports amenorrhea Musculoskeletal: Musculoskeletal: Reports no additional musculoskeletal complaints Integumentary/Breasts: Skin/Breast: Denies breast mass and Denies rash Neurologic: Denies headache(s) Psychiatric: Psychiatric: Reports no additional psychiatric complaints [facility] Past Medical History 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 History of seizure disorder Pelvic pain Vaginal delivery x2 Surgical History Surgical History No pertinent past surgical history Family History Family History Other No pertinent family history Social History Social History Smoking status: Never smoker Alcohol intake: never Substance use: never Do You Feel Safe in your Home?: Yes Lack of Transportation: No Lack of Food: Never True Current Housing: I Have Housing Concerned About Future Housing: No Difficulty Paying Gas/Electric Bills: No Difficulty Paying for Meds: No Currently Unemployed: No Education: High School Diploma/GED Difficulty w/ Childcare or Family Care: No Spiritual care concerns: No Meds Home Medications and Allergies Home Medications Medication Instructions Recorded Confirmed Type vit no.95-ferrous 1 tablet PO DAILY 10/02/21 04/22/24 History fumarate 28 mg-folic acid 800 mcg tablet () folic acid 1 mg tablet 1 mg PO DAILY #90 tabs 11/21/23 04/22/24 Rx levetiracetam 500 mg tablet 500 mg PO BID #180 tabs 11/21/23 04/22/24 Rx (Keppra) Allergies Allergy/AdvReac Type Severity Reaction Status Date / Time No Known Allergies Allergy Verified 04/29/24 12:48 Vital Signs Vital Signs - 24 hr 05/06/24 06:40 05/06/24 06:38 05/06/24 06:45 Temperature Pulse Rate 108 H 96 Blood Pressure 113/77 106/75 Pulse Oximetry Oxygen Delivery Room Air 05/06/24 07:02 05/06/24 07:15 05/06/24 07:30 Temperature Pulse Rate 89 74 84 Blood Pressure 111/72 108/75 116/76 Pulse Oximetry Oxygen Delivery 05/06/24 07:46 05/06/24 08:00 05/06/24 08:15 Temperature Pulse Rate 88 82 90 Blood Pressure 112/63 117/71 114/71 Pulse Oximetry Oxygen Delivery 05/06/24 08:30 05/06/24 08:34 05/06/24 08:38 Temperature Pulse Rate 88 86 Blood Pressure 113/70 113/72 Pulse Oximetry 98 Oxygen Delivery 05/06/24 08:39 05/06/24 08:42 05/06/24 08:44 Temperature Pulse Rate 98 117 H Blood Pressure 112/77 117/70 Pulse Oximetry 99 98 Oxygen Delivery 05/06/24 08:46 05/06/24 08:49 05/06/24 08:52 Temperature Pulse Rate 89 53 L 65 Blood Pressure 88/29 L 57/28 L 74/36 L Pulse Oximetry 100 Oxygen Delivery 05/06/24 08:54 05/06/24 08:56 05/06/24 08:58 Temperature Pulse Rate 52 L 89 Blood Pressure 152/134 H 114/78 Pu
--- NOTE | 2024-05-06 17:09 | PM.OBPNVD ---
OB - PN: Subj Subjective Date/time seen: 05/06/24 0835 Interval history: Cat 1, fht 130, cervix 2.5/60/-3 AROM clear. OB - PN: Obj Data Labs 05/07/24 03:17 Labs: Laboratory Results - last 24 hr 05/06/24 05/06/24 06:08 06:18 WBC 7.8 RBC 3.94 L Hgb 11.4 L Hct 35.0 L MCV 88.8 MCH 28.9 MCHC 32.6 RDW 13.8 Plt Count 162 MPV 11.9 H Immature Gran % (Auto) 0.4 Neut % (Auto) 70.6 Lymph % (Auto) 22.7 Crook % (Auto) 5.1 Eos % (Auto) 0.9 Baso % (Auto) 0.3 Lymph # (Auto) 1.77 Crook # (Auto) 0.4 Eos # (Auto) 0.1 Baso # (Auto) 0.0 Abs Immat Gran (auto) 0.03 Absolute Neuts (auto) 5.5 Absolute Nucleated RBC 0.000 Nucleated RBC % 0.0 RPR Non-reactive HIV 1&2 Ab/P24 Ag 4thGn Negative Blood Type O Positive Antibody Screen Negative OB - PN A/P Time Spent With Patient Time: Total time spent is greater than 50% in coordination of care (as documented) at patient's floor/unit and/or counseling patient:
--- NOTE | 2024-05-06 17:09 | PM.OBPNVD ---
OB - PN: Subj Subjective Date/time seen: 05/06/24 1600 Interval history: fht 145, cat 2, cervix 90/0. OB - PN: Obj Data Labs 05/07/24 03:17 Labs: Laboratory Results - last 24 hr 05/06/24 05/06/24 06:08 06:18 WBC 7.8 RBC 3.94 L Hgb 11.4 L Hct 35.0 L MCV 88.8 MCH 28.9 MCHC 32.6 RDW 13.8 Plt Count 162 MPV 11.9 H Immature Gran % (Auto) 0.4 Neut % (Auto) 70.6 Lymph % (Auto) 22.7 [place] % (Auto) 5.1 Eos % (Auto) 0.9 Baso % (Auto) 0.3 Lymph # (Auto) 1.77 [place] # (Auto) 0.4 Eos # (Auto) 0.1 Baso # (Auto) 0.0 Abs Immat Gran (auto) 0.03 Absolute Neuts (auto) 5.5 Absolute Nucleated RBC 0.000 Nucleated RBC % 0.0 RPR Non-reactive HIV 1&2 Ab/P24 Ag 4thGn Negative Blood Type O Positive Antibody Screen Negative OB - PN A/P Time Spent With Patient Time: Total time spent is greater than 50% in coordination of care (as documented) at patient's floor/unit and/or counseling patient:
--- NOTE | 2024-05-06 17:10 | PM.DS ---
DS: Admitting Diagnosis Discharge Date 05/08/2024 Admitting Diagnosis Induction of labor DS: Discharge Diagnosis Discharge Diagnosis (1) Vaginal delivery: Code(s): O80 - Encounter for full-term uncomplicated delivery Status: Acute DS: Summary Hospital Course Reason for hospitalization: Induction of labor Hospital Course: She was admitted for Pitocin induction of labor. She had an uncomplicated vaginal delivery. She did well . Baby did well . Status at Discharge Functional status at discharge: independent ambulation Time Spent with Patient Time attestation: Total time spent providing and/or coordinating discharge services: Exam Const: General: cooperative Orientation/consciousness: oriented to person, oriented to place and oriented to time HENMT: Face/Nose/Sinus: Normal external nose present Eyes: General: appearance normal, both eyes and all related structures Resp: Effort & Inspection: normal respiratory effort GI: Inspection: normal to inspection Skin: General skin exam: normal color Neuro: General: oriented to person, oriented to place and oriented to time Extrem: General: normal to inspection and no calf tenderness Psych: Appearance: grossly normal Mental Status: mental status grossly normal DS: Data Data Completed and Pending Labs on day of discharge: Labs from last 24 hours 05/06/24 05/06/24 06:18 06:08 WBC 7.8 RBC 3.94 L Hgb 11.4 L Hct 35.0 L MCV 88.8 MCH 28.9 MCHC 32.6 RDW 13.8 Plt Count 162 MPV 11.9 H Immature Gran % (Auto) 0.4 Neut % (Auto) 70.6 Lymph % (Auto) 22.7 [place] % (Auto) 5.1 Eos % (Auto) 0.9 Baso % (Auto) 0.3 Lymph # (Auto) 1.77 [place] # (Auto) 0.4 Eos # (Auto) 0.1 Baso # (Auto) 0.0 Abs Immat Gran (auto) 0.03 Absolute Neuts (auto) 5.5 Absolute Nucleated RBC 0.000 Nucleated RBC % 0.0 RPR Non-reactive HIV 1&2 Ab/P24 Ag 4thGn Negative Blood Type O Positive Antibody Screen Negative Discharge Plan Discharge Attending physician on discharge: Justus Catherine Consulting providers: Gustavo Colvin Discharging Clinician: Justus Catherine Patient Disposition: Home, Self-Care Activity: may shower and pelvic rest Diet: regular Discharge Instructions: Education: Mom and Baby Guide Given to: Mother Follow-Up: Call your delivering provider's office for an appointment to be seen. Mom and baby should come to the [facility] for the follow-up appointment. Appointment Date/Time: May 09, 2024 at 9:00 am What to expect at your follow-up visit: Physical Assessment Call [phone] if you are unable to keep your appointment time. BREAST CARE: * Wear a snug supportive bra. * For engorgement discomfort: Breast Feeding: * Apply warm moist washcloths * Express milk as needed to relieve engorgement * Wear loose clothing * For sore nipples: * Identify correct latch-on * Apply warm moist washcloths before and after nursing * Air dry nipples after nursing * May apply Lansinoh cream to nipples PERINEAL CARE: * Until bleeding stops, use your yousif bottle after urinating * Change your pad frequently throughout the day * You may take sitz baths several times a day (fill your bathtub with warm water and soak for 20 minutes.) Do NOT bathe in the water * No tub baths until seen by your physician - You may shower ACTIVITY: * Rest as much as possible. * Do not exercise or lift anything heavier than your baby (such as laundry or other children.) * Avoid stairs or driving as much as possible. * Do not put anything into the vagina. No douching, tampons, or sexual activity until seen by physician. NOTIFY PHYSICIAN IF YOU HAVE ANY QUESTIONS OR IF ANY OF THE FOLLOWING SYMPTOMS OCCUR: * If your perineum becomes red, swollen, or more painful than what you have experienced in the hospital. *
[2024-05-06] MEDS: OXYTOCIN 30 UNITS/NS 500 ML 30 UNITS/500 ML BAG 125 UNITS IV CONT (17:25)
[2024-05-06] MEDS: levETIRAcetam 500 MG TABLET PO (17:57)
[2024-05-06] MEDS: WITCH HAZEL 40 PADS 1 PAD TOPICAL (19:04)
[2024-05-06] MEDS: BENZOCAINE 20% AER SPR (*SP) 56 GM CAN 1 SPRAY TOPICAL (19:04)
--- NOTE | 2024-05-06 19:45 | OBPPTRN ---
Patient transferred to post room #279 via wheelchair. Support person present. Oriented to unit, room, information board, rooming in, admission packet and security measures. Patient verbalizes understanding. with patient.
[2024-05-06] MEDS: IBUPROFEN 600 MG TABLET PO (23:35)
[2024-05-07] MEDS: ACETAMINOPHEN 325 MG TABLET 650 MG PO (03:24)
[2024-05-07 05:06] LABS: Hematocrit 32.4 % (37.0-47.0); Hemoglobin 10.1 g/dL (12.0-15.0)
[2024-05-07] MEDS: MULTIVIT/MIN/PREN/FOL AC/IRON TABLET 1 TAB PO (06:44)
[2024-05-07] MEDS: DOCUSATE SODIUM 100 MG CAPSULE PO (06:46)
[2024-05-07] MEDS: IBUPROFEN 600 MG TABLET PO (06:46)
[2024-05-07 07:30] VITALS: BP 90/45; PULSE 78; RESP 16; TEMP 36.9; O2SAT 100
--- NOTE | 2024-05-07 08:15 | PC.NURSE ---
Introductions were made, then consulted with patient to assess needs related to . Discussed with mother her?plans to feed?her and the?experience so far. Resources provided for inpatient and outpatient services with the feeding sheet, mom/baby guide and name written on the communication board. Mother voiced understanding of information and will call if there is a request for assistance. Reported to the Primary RN.
[2024-05-07] MEDS: levETIRAcetam 500 MG TABLET PO ×2 (09:24→18:18)
[2024-05-07 12:00] VITALS: BP 98/59; PULSE 65; RESP 18; TEMP 36.6; O2SAT 100
--- NOTE | 2024-05-07 12:32 | PM.OBPNVD ---
OB - PN: Subj Subjective Date/time seen: 05/07/24 12:32 Patient comments: pain well controlled, tolerating diet and other (Decreasing lochia.) baby status: doing well and nursing well [place] feeding status: exclusively breast feeding OB - PN: Obj Data Labs 05/07/24 03:17 Labs: Laboratory Results - last 24 hr 05/07/24 03:17 Hgb 10.1 L Hct 32.4 L OB - PN A/P Plan day: 1 Plan: routine care Comments: Patient doing well. Time Spent With Patient Time: Total time spent is greater than 50% in coordination of care (as documented) at patient's floor/unit and/or counseling patient: Exam Psych: Affect: normal affect Other: Abd: fundus firm below umbilicus, nontender Perineum: healing Ext: nontender
--- NOTE | 2024-05-07 16:35 | WPDANLDPN2 ---
Anes-Prog Note L&D Date/Time: 05/07/24 16:35 Comfortable throughout: labor and delivery Neuraxial method: epidural Epidural/Spinal procedure site: clean & non-tender Neuro status: Neuro function grossly intact. Cardiovascular status: normal Respiratory status: normal Airway patency: baseline Mental status: baseline Post-Op hydration status: normal Vital Signs: Last Vital Signs Temp 36.6 C 05/07/24 12:00 Pulse 65 05/07/24 12:00 Resp 18 05/07/24 12:00 BP 98/59 L 05/07/24 12:00 Pulse Ox 100 05/07/24 12:00 O2 Del Method Room Air 05/07/24 12:00 Pain score (VAS): 1/10 I/O: Intake & Output 05/07/24 05/07/24 05/07/24 07:59 15:59 23:59 Intake Total 340 Balance 340 Post-procedural complaints: none Patient feedback: Patient satisfied with anesthetic care.
--- NOTE | 2024-05-07 18:00 | PC.NURSE ---
Breast pump provided due to [mother's history of pituitary cyst and low milk production]. Instructions given on cleaning, care, usage, that there should be no pain, pumping schedule for milk production, collection, and storage of human milk. Patient was assessed for correct placement, flange size (24mm). Mother is advised to pump ad cinthia (a few times a day or after every feeding if desired) to promote a good milk supply. Patient quit and pumping with previous babies due to depression and the stresses of pumping. Encouraged mom to pump as much as she is comfortable with and not to overwhelm herself. She really wants to work this time so she decided not to take a Depo shot before discharge; we discussed this could cause a reduction in milk supply also, but she is aware she needs to use alternative forms of control. Mom has a breast pump at home.?Mother voiced understanding of the education shared along with mom/baby guide for additional resource information. Reported to the Primary RN.
[2024-05-07 23:00] VITALS: BP 115/61; PULSE 70; RESP 18; TEMP 36.6; O2SAT 98
[2024-05-08 08:00] VITALS: BP 110/66; PULSE 78; RESP 16; TEMP 36.8; O2SAT 99
[2024-05-08] MEDS: DOCUSATE SODIUM 100 MG CAPSULE PO (09:32)
[2024-05-08] MEDS: levETIRAcetam 500 MG TABLET PO (09:32)
[2024-05-08] MEDS: INFLUENZA TRIVALENT VACCINE 45 MCG/0.5 ML SYRINGE IM (09:33)
[2024-05-08] MEDS: MULTIVIT/MIN/PREN/FOL AC/IRON TABLET 1 TAB PO (09:33)
[2024-05-08] MEDS: LANOLIN (LANSINOH) 7.5 GM CREAM 1 APPLIC TOPICAL (09:33)
--- NOTE | 2024-05-08 13:12 | PM.OBPRVD ---
OB - Vaginal Delivery Note Procedure Delivery date: 05/08/24 Events: Other ( history of seizure disorder) Induction method: Per Pitocin Protocol Delivery augmentation: Rupture of Membranes ( clear) Delivery monitor: External FHT and Internal Uterine Route of delivery: Laceration Description: Perineal - 1st Degree Delivery repair: vicryl (3.0 vicryl) Specimen: No Quantitative Blood Loss (ml): 150 Anesthesia type: Epidural Disposition: Floor Complications: No immediate complications Narrative: she was admitted for medical induction of labor. Pitocin was started. She had assisted rupture of membranes. She dilated to complete and had an uncomplicated vaginal delivery. Nose mouth suction at the perineum. Two nuchal cords were surgically reduced. placed on maternal abdomen. was crying vigorously. Pitocin was started. Placenta delivered spontaneously and intact there were trailing membranes in the lower uterus segment was cleared of clots and small segment of membranes. Small laceration at the introitus was approximated with 3-0 Vicryl for hemostasis hemostasis noted. Baby Date of : 05/06/24 Time of : 16:53 Gestational Age by Date: 39 gender: Female Weight (pounds): 6 Weight (ounces): 11 presentation: vertex position: Left Occiput Anterior Placenta delivery description: Spontaneous Cord Vessel Description: 3 Vessels, Nuchal Cord (x2) and Tight score one minute: 8 score five minutes: 9
[2024-05-09 09:17] VITALS: BP 106/65; PULSE 82; RESP 18; TEMP 37.2; O2SAT 100
== END 2024-05-08 10:55 | disposition home or self-care (01) | DRG 560 ==
LOC: ANHOB2 05-08 10:10 → ANHLDR 05-09 08:13 → ANHOB2 05-09 08:13
PROVIDERS: Admitting Provider Obstetrics & Gynecology; PCP Family Medicine; Visit Provider Student in an Organized Health Care Education/Training Program
DX: O99.354 Diseases of the nervous system complicating childbirth (principal); G40.909 Epilepsy, unspecified, not intractable, without status epilepticus; O70.0 First degree perineal laceration during delivery; O69.1XX0 Labor and delivery complicated by cord around neck, with compression, not applicable or unspecified; Z3A.39 39 weeks gestation of pregnancy; Z37.0 Single live birth; Z23 Encounter for immunization; Z14.1 Cystic fibrosis carrier
CPT/HCPCS: 36415; 85014; 85018; 85025; 86592; 86703; 86850; 86900; 86901; 90471; 90656; A9270; G0008; G0432; J2405; J2590; J2795; J7120; J7121

== ENCOUNTER 2024-06-02 14:02 | Emergency (ER) | payer OTHER, SELFPAY ==
--- NOTE | ~2024-06-02 | CT_ITS ---
EXAMINATION: CT lumbar spine wo con DATE: 06/02/2024 15:53 INDICATION: Low back pain TECHNIQUE: Computed tomography (CT) of the lumbar spine was performed without intravenous contrast. A utomated exposure control and iterative reconstruction technique were employed. The dose-length produ ct was 466.78 mGy-cm. COMPARISON: None FINDINGS: 3 mm retrolisthesis L5 on S1. Bone alignment is otherwise normal. Vertebral body heights are normal. No fracture. Disc heights are normal. Paravertebral soft tissues are unremarkable. The following disc levels are specifically discussed: T11-T12: The disc does not extend beyond the endplate margin. There is mild bilateral facet joint ost eoarthritis. There is no neural foraminal stenosis. There is no central canal stenosis. T12-L1: The disc does not extend beyond the endplate margin. There is mild bilateral facet joint oste oarthritis. There is no neural foraminal stenosis. There is no central canal stenosis. L1-L2: The disc does not extend beyond the endplate margin. There is mild bilateral facet joint osteo arthritis. There is no neural foraminal stenosis. There is no central canal stenosis. L2-L3: Disc is mildly bulging. There is mild right and minimal left facet joint osteoarthritis. There is no neural foraminal stenosis. There is minimal central canal stenosis. L3-L4: Disc is mildly bulging. There is mild right and minimal left facet joint osteoarthritis. There is no neural foraminal stenosis. There is minimal central canal stenosis. L4-L5: Disc is mildly bulging with superimposed small central disc protrusion. There is no facet join t osteoarthritis. There is mild left and minimal right neural foraminal stenosis. There is mild centr al canal stenosis. L5-S1: Disc is bulging. There is mild bilateral facet joint osteoarthritis. There is mild bilateral n eural foraminal stenosis. There is minimal central canal stenosis. IMPRESSION: 1. Very mild lumbar spondylosis and 3 mm retrolisthesis L5 on S1. Reviewed, dictated and finalized at location A.
[2024-06-02 13:55] VITALS: BP 115/72; PULSE 60; RESP 12; TEMP 36.4; O2SAT 100
--- NOTE | 2024-06-02 14:45 | ED.BACK ---
HPI - Back Pain/Injury General Chief Complaint: Back Pain/Injury Stated Complaint: back pain History of Present Illness HPI Narrative: 23 old female present to the emergency department for evaluation for lower back pain. Patient reports she did have an epidural approximately 1 month ago but has had no pain until today when she stood up and felt a pop in her lower back and now has pain that radiates into her right leg. Patient denies any numbness or weakness but states she had her legs give out secondary to the pain. Related Data Home Medications Medication Instructions Recorded Confirmed vit no.95-ferrous 1 tablet PO DAILY 10/02/21 04/22/24 fumarate 28 mg-folic acid 800 mcg tablet () Allergies Allergy/AdvReac Type Severity Reaction Status Date / Time No Known Allergies Allergy Verified 04/29/24 12:48 Review of Systems Review of Systems: All systems reviewed & are unremarkable except as noted in HPI and below PMFSH Past Medical History 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 History of seizure disorder Pelvic pain Vaginal delivery x2 Surgical History Surgical History No pertinent past surgical history Family History Family History Other No pertinent family history Social History Social History Smoking status: Never smoker Alcohol intake: never Substance use: never Do You Feel Safe in your Home?: Yes Lack of Transportation: No Lack of Food: Never True Current Housing: I Have Housing Concerned About Future Housing: No Difficulty Paying Gas/Electric Bills: No Difficulty Paying for Meds: No Currently Unemployed: No Education: High School Diploma/GED Difficulty w/ Childcare or Family Care: No Spiritual care concerns: No Exam Narrative: APPEARANCE: Well appearing, no pain, no distress, well-nourished. HEAD: normocephalic, atraumatic. EYES: PERRLA/EOMI, conjunctivae clear. NOSE: Normal no drainage EARS:TMS clear with good light reflex. THROAT: Pharynx clear, no exudate. NECK: Supple. No adenopathy, no masses. RESPIRATORY: Airway patent, respirations nonlabored. Clear to auscultation bilaterally, no rales, rhonchi, wheezing. CARDIOVASCULAR: Regular rate and rhythm without murmurs rubs or gallops. ABDOMINAL: Soft, nontender, nondistended, normal bowel sounds MUSCULOSKELETAL: Lower back tenderness to palpation and right lower back tenderness to palpation along with tenderness of the right buttock, no ecchymosis, no deformity NEURO: Alert. Cranial nerves II through XII intact. Good gait. Good coordination SKIN: Warm, dry. Normal Color Course Vital Signs Vital signs: Vital Signs Temperature 97.6 F 06/02/24 13:55 Pulse Rate 60 06/02/24 13:55 Respiratory Rate 12 06/02/24 13:55 Blood Pressure 115/72 06/02/24 13:55 Pulse Oximetry 100 06/02/24 13:55 Oxygen Delivery Room Air 06/02/24 13:55 Temperature 98.1 F 06/02/24 17:49 Pulse Rate 82 06/02/24 17:49 Respiratory Rate 14 06/02/24 17:49 Blood Pressure 112/68 06/02/24 17:49 Pulse Oximetry 99 06/02/24 17:49 Oxygen Delivery Room Air 06/02/24 13:55 MDM - Back Pain/Injury MDM Narrative Medical decision making narrative: 23-year-old female present to the emergency department for evaluation for right lower back pain. Patient is neurovascularly intact. CT scan showed no acute abnormality. Patient afebrile with no leukocytosis and a stable hemoglobin of 12.6. No acute abnormalities on the patient's CMP. Patient did feel improved with treatment. Patient is neurologically intact. Patient has normal strength and reflexes on bilateral lower extremities, low concern for epidural abscess. Exam is more consistent
[2024-06-02] MEDS: SODIUM CHLORIDE 0.9% IV 1,000 ML 999 ML IV CONT (15:01)
[2024-06-02] MEDS: CYCLOBENZAPRINE HCL 10 MG TABLET PO (15:02)
[2024-06-02] MEDS: MORPHINE SULFATE (*CRX) 2 MG/ML INJ IV PUSH (15:03)
[2024-06-02 15:06] VITALS: BP 107/69; PULSE 55; RESP 16; O2SAT 99
[2024-06-02 15:09] LABS: BEDSIDEPREGUCG Negative (Negative)
[2024-06-02 15:12] LABS: Basophils Percent Auto 0.4 % (0.2-1.2); Eosinophils Absolute Auto 0.2 K/mm3 (0-0.3); Hematocrit 39.3 % (37.0-47.0); Hemoglobin 12.6 g/dL (12.0-15.0); Immature Granulocyte Absolute 0.02 K/mm3 (0.00-0.031); Immature Granulocyte Percent A 0.2 % (0-0.5); Lymphocytes Percent Auto 14.3 % (18.3-44.2); Mean Corpuscular HGB Conc 32.1 g/dl (32-36); Mean Corpuscular Hemoglobin 28.6 pg (26-34); Mean Corpuscular Volume 89.3 fl (80-100); Mean Platelet Volume 11.1 fl (7.4-10.4); Monocytes Absolute Auto 0.5 K/mm3 (0.1-0.6); Monocytes Percent Auto 4.9 % (2.6-8.5); Neutrophils Absolute Auto 7.6 K/mm3 (1.3-6.7); Neutrophils Percent Auto 78.2 % (45.5-73.1); Platelet Count Result 271 k/mm3 (150-375); Red Cell Distribution Width 12.9 % (11.5-14.5); White Blood Count 9.8 K/mm3 (4.5-10.0)
[2024-06-02 15:21] LABS: Alanine Aminotransferase 18 U/L (6-35); Albumin Level 3.9 g/dL (3.5-5.1); Alkaline Phosphatase 110 U/L (38-126); Anion Gap 7 mmol/L (4-12); Aspartate Amino Transferase 27 U/L (14-36); Bilirubin,Total 0.3 mg/dL (0.2-1.3); Blood Urea Nitrogen 10 mg/dL (7-17); Calcium 9.1 mg/dL (8.4-10.2); Carbon Dioxide 25 mmol/L (22-30); Chloride 106 mmol/L (98-107); Estimated CRCL calculation 102 ml/min; Estimated Glomerular Filt Rate > 60; Glucose 95 mg/dL (65-110); Sodium 138 mmol/L (137-145)
[2024-06-02 16:17] VITALS: BP 112/62; PULSE 56; RESP 15; O2SAT 99
[2024-06-02] MEDS: KETOROLAC 15 MG/ML VIAL (*BKC) IV PUSH (16:18)
[2024-06-02 17:49] VITALS: BP 112/68; PULSE 82; RESP 14; TEMP 36.7; O2SAT 99
== END 2024-06-02 17:50 | disposition home or self-care (01) ==
PROVIDERS: Emergency Provider Emergency Medicine; PCP Family Medicine
DX: S39.012A Strain of muscle, fascia and tendon of lower back, initial encounter (principal); M54.41 Lumbago with sciatica, right side; G40.909 Epilepsy, unspecified, not intractable, without status epilepticus; Z14.1 Cystic fibrosis carrier; X50.9XXA Other and unspecified overexertion or strenuous movements or postures, initial encounter; M47.816 Spondylosis without myelopathy or radiculopathy, lumbar region
CPT/HCPCS: 36415; 72131; 80053; 81025; 85025; 96361; 96374; 96375; 99284; A9270; J1885; J2270; J7030